=== PATIENT | male | born 1945 | race Caucasian/White ===

== ENCOUNTER 2019-12-27 | Outpatient (REF) | payer OTHER, SELFPAY ==
[2019-12-28 11:02] LABS: SCAN SMEAR FLAG 1
[2019-12-28 11:04] LABS: Basophils Percent Auto 0.9 % (0-2); Eosinophils Absolute Auto 0.2 X10*3/uL (0.0-0.4); Eosinophils Percent Auto 4.3 % (0-4); Hematocrit 34.5 % (42-52); Hemoglobin 10.6 g/dl (14.0-18.0); Imm Gran Abs Auto 0.03 X10*3/uL (0.00-0.03); Imm Gran Pct Auto 0.7 % (0.0-0.4); Lymphocytes Absolute Auto 1.4 X10*3/uL (1.2-4.9); Lymphocytes Percent Auto 31.2 % (20-40); Mean Corpuscular HGB Conc 30.7 g/dl (31.0-36.0); Mean Corpuscular Hemoglobin 26.1 pg (27.0-33.0); Monocytes Absolute Auto 0.5 X10*3/uL (0.1-1.2); Monocytes Percent Auto 11.4 % (2-11); Neutrophils Absolute Auto 2.3 X10*3/uL (2.0-8.3); Neutrophils Percent Auto 51.5 % (45-73); Platelet Count 119 X10*3/uL (160-400); Red Blood Count 4.06 X10*6/uL (4.60-5.80); White Blood Count 4.5 X10*3/uL (4.8-10.8)
[2019-12-28 11:15] LABS: PLT ABN DIST 1
[2019-12-28 11:16] LABS: MANUAL DIFF FLAG NO
== END 2019-12-27 00:01 | disposition home or self-care (01) ==
LOC: HO.HSH3W
PROVIDERS: Visit Provider Internal Medicine
DX: D64.9 Anemia, unspecified (principal)
CPT/HCPCS: 36415; 85025

== ENCOUNTER 2020-01-03 11:06 | Outpatient (REF) | payer OTHER, MEDICARE, SELFPAY | END 2020-01-03 11:07 | disposition home or self-care (01) | LOC: HO.HSH2W 11:06 | PROVIDERS: Visit Provider Internal Medicine Critical Care Medicine | DX: Z20.828 Contact with and (suspected) exposure to other viral communicable diseases (principal) | CPT/HCPCS: 87635 ==

== ENCOUNTER 2020-01-09 12:51 | Outpatient (REF) | payer OTHER, MEDICARE, SELFPAY ==
[2020-01-09 20:30] LABS: SARS COV2 PCR INHOUSE NEGATIVE (Negative)
== END 2020-01-09 12:52 | disposition home or self-care (01) ==
LOC: HO.HSH3E 12:51
PROVIDERS: PCP Internal Medicine Medical Oncology; Visit Provider Internal Medicine Medical Oncology
DX: Z20.828 Contact with and (suspected) exposure to other viral communicable diseases (principal); B34.9 Viral infection, unspecified
CPT/HCPCS: 87071; 87635

== ENCOUNTER 2020-01-10 06:23 | Outpatient (REF) | payer OTHER, MEDICARE, SELFPAY ==
[2020-01-10 09:36] LABS: MANUAL DIFF FLAG SCAN; Mean Corpuscular HGB Conc 31.7 g/dl (31.0-36.0); SCAN SMEAR FLAG 1
[2020-01-10 09:38] LABS: Basophils Absolute Auto 0.1 X10*3/uL (0.0-0.2); Basophils Percent Auto 0.6 % (0-2); Eosinophils Absolute Auto 0.2 X10*3/uL (0.0-0.4); Eosinophils Percent Auto 2.4 % (0-4); Hematocrit 34.7 % (42-52); Imm Gran Abs Auto 0.04 X10*3/uL (0.00-0.03); Imm Gran Pct Auto 0.5 % (0.0-0.4); Lymphocytes Absolute Auto 1.3 X10*3/uL (1.2-4.9); Lymphocytes Percent Auto 14.2 % (20-40); Mean Corpuscular Hemoglobin 27.9 pg (27.0-33.0); Mean Corpuscular Volume 88.1 fL (80-98); Monocytes Absolute Auto 1.5 X10*3/uL (0.1-1.2); Monocytes Percent Auto 16.8 % (2-11); Neutrophils Absolute Auto 5.8 X10*3/uL (2.0-8.3); Neutrophils Percent Auto 65.5 % (45-73); Red Blood Count 3.94 X10*6/uL (4.60-5.80); Red Cell Distribution Width 23.9 % (11.0-16.0); White Blood Count 8.9 X10*3/uL (4.8-10.8)
[2020-01-10 09:42] LABS: PLT ABN DIST 1; Platelet Count 95 X10*3/uL (160-400)
[2020-01-10 10:16] LABS: SLIDE REVIEW VERIFIED
[2020-01-10 14:37] LABS: SARS COV2 PCR INHOUSE NEGATIVE (Negative)
== END 2020-01-10 06:24 | disposition home or self-care (01) ==
LOC: HO.HSH3W 06:23
PROVIDERS: Visit Provider Internal Medicine Medical Oncology
DX: Z20.828 Contact with and (suspected) exposure to other viral communicable diseases (principal); J98.8 Other specified respiratory disorders
CPT/HCPCS: 36415; 85025; 87635

== ENCOUNTER 2020-01-12 06:34 | Outpatient (REF) | payer OTHER, SELFPAY ==
[2020-01-12 08:59] LABS: MANUAL DIFF FLAG SCAN; SCAN SMEAR FLAG 1
[2020-01-12 09:00] LABS: Basophils Percent Auto 0.7 % (0-2); Eosinophils Absolute Auto 0.2 X10*3/uL (0.0-0.4); Eosinophils Percent Auto 3.4 % (0-4); Hematocrit 34.5 % (42-52); Hemoglobin 11.2 g/dl (14.0-18.0); Imm Gran Abs Auto 0.02 X10*3/uL (0.00-0.03); Imm Gran Pct Auto 0.3 % (0.0-0.4); Lymphocytes Absolute Auto 1.3 X10*3/uL (1.2-4.9); Lymphocytes Percent Auto 21.3 % (20-40); Mean Corpuscular HGB Conc 32.5 g/dl (31.0-36.0); Mean Corpuscular Hemoglobin 28.2 pg (27.0-33.0); Mean Corpuscular Volume 86.9 fL (80-98); Monocytes Absolute Auto 0.9 X10*3/uL (0.1-1.2); Monocytes Percent Auto 15.7 % (2-11); Neutrophils Absolute Auto 3.5 X10*3/uL (2.0-8.3); Neutrophils Percent Auto 58.6 % (45-73); Platelet Count 106 X10*3/uL (160-400); Red Blood Count 3.97 X10*6/uL (4.60-5.80); Red Cell Distribution Width 22.9 % (11.0-16.0)
[2020-01-12 09:05] LABS: PLT ABN DIST 1
[2020-01-12 10:16] LABS: Vitamin D 25-OH Total 8.9 ng/mL (>30)
== END 2020-01-12 06:35 | disposition home or self-care (01) ==
LOC: HO.HSH1N 06:34
PROVIDERS: Visit Provider Nurse Practitioner
DX: D64.9 Anemia, unspecified (principal)
CPT/HCPCS: 36415; 82306; 85025

== ENCOUNTER 2020-02-08 07:25 | Outpatient (REF) | payer OTHER, SELFPAY ==
[2020-02-08 08:42] LABS: MANUAL DIFF FLAG NO
[2020-02-08 08:51] LABS: Basophils Percent Auto 0.8 % (0-2); Eosinophils Absolute Auto 0.3 X10*3/uL (0.0-0.4); Eosinophils Percent Auto 5.3 % (0-4); Hematocrit 33.6 % (42-52); Hemoglobin 11.2 g/dl (14.0-18.0); Imm Gran Abs Auto 0.02 X10*3/uL (0.00-0.03); Imm Gran Pct Auto 0.4 % (0.0-0.4); Lymphocytes Absolute Auto 1.5 X10*3/uL (1.2-4.9); Lymphocytes Percent Auto 32.3 % (20-40); Mean Corpuscular HGB Conc 33.3 g/dl (31.0-36.0); Mean Corpuscular Hemoglobin 30.1 pg (27.0-33.0); Mean Corpuscular Volume 90.3 fL (80-98); Mean Platelet Volume 12.3 fL (9.4-12.4); Monocytes Absolute Auto 0.7 X10*3/uL (0.1-1.2); Monocytes Percent Auto 13.7 % (2-11); Neutrophils Absolute Auto 2.3 X10*3/uL (2.0-8.3); Neutrophils Percent Auto 47.5 % (45-73); Red Blood Count 3.72 X10*6/uL (4.60-5.80); Red Cell Distribution Width 18.1 % (11.0-16.0); White Blood Count 4.7 X10*3/uL (4.8-10.8)
[2020-02-08 08:53] LABS: Platelet Count 97 X10*3/uL (160-400)
== END 2020-02-08 07:26 | disposition home or self-care (01) ==
LOC: HO.HSH3W 07:25
PROVIDERS: Visit Provider Nurse Practitioner
DX: D64.9 Anemia, unspecified (principal)
CPT/HCPCS: 36415; 85025

== ENCOUNTER 2020-03-27 07:29 | Outpatient (REF) | payer OTHER, SELFPAY ==
[2020-03-27 09:25] LABS: MANUAL DIFF FLAG NO
[2020-03-27 09:31] LABS: Basophils Percent Auto 0.8 % (0-2); Eosinophils Absolute Auto 0.1 X10*3/uL (0.0-0.4); Eosinophils Percent Auto 2.3 % (0-4); Hematocrit 36.2 % (42-52); Hemoglobin 12.4 g/dl (14.0-18.0); Imm Gran Abs Auto 0.02 X10*3/uL (0.00-0.03); Imm Gran Pct Auto 0.4 % (0.0-0.4); Lymphocytes Absolute Auto 1.7 X10*3/uL (1.2-4.9); Lymphocytes Percent Auto 31.8 % (20-40); Mean Corpuscular HGB Conc 34.3 g/dl (31.0-36.0); Mean Corpuscular Hemoglobin 32.9 pg (27.0-33.0); Mean Platelet Volume 12.3 fL (9.4-12.4); Monocytes Absolute Auto 0.8 X10*3/uL (0.1-1.2); Monocytes Percent Auto 15.3 % (2-11); Neutrophils Absolute Auto 2.6 X10*3/uL (2.0-8.3); Neutrophils Percent Auto 49.4 % (45-73); Platelet Count 104 X10*3/uL (160-400); Red Blood Count 3.77 X10*6/uL (4.60-5.80); Red Cell Distribution Width 13.7 % (11.0-16.0); White Blood Count 5.3 X10*3/uL (4.8-10.8)
[2020-03-27 09:42] LABS: Estimated Average Glucose 160 mg/dL; Hemoglobin A1c % 7.2 %
[2020-03-27 09:56] LABS: Alanine Aminotransferase 10 U/L (0-40); Albumin Level 3.6 g/dL (3.5-5.0); Alkaline Phosphatase 47 U/L (39-117); Anion Gap 13 (12-20); Aspartate Amino Transferase 13 U/L (5-37); Bilirubin Total 0.9 mg/dL (0.0-1.0); Blood Urea Nitrogen 15 mg/dL (9-16); Calcium 8.6 mg/dL (8.4-10.2); Carbon Dioxide 26 mmol/L (22-29); Chloride 102 mmol/L (96-108); Estimated Glomerular Filt Rate > 60; Glucose Random 94 mg/dL (60-115); Potassium 3.7 mmol/l (3.3-5.1); Sodium 137 mmol/L (135-145); Total Protein 6.1 g/dL (6.5-8.0)
[2020-03-27 14:15] LABS: Vitamin D 25-OH Total 24.9 ng/mL (>30)
== END 2020-03-27 07:30 | disposition home or self-care (01) ==
LOC: HO.HSH3W 07:29
PROVIDERS: Visit Provider Nurse Practitioner
DX: E55.9 Vitamin D deficiency, unspecified (principal); E11.9 Type 2 diabetes mellitus without complications; D64.9 Anemia, unspecified
CPT/HCPCS: 36415; 80053; 82306; 83036; 85025

== ENCOUNTER 2020-06-26 05:30 | Outpatient (REF) | payer OTHER, SELFPAY ==
[2020-06-26 10:00] LABS: Estimated Average Glucose 171 mg/dL; Hemoglobin A1c % 7.6 %
== END 2020-06-26 05:31 | disposition home or self-care (01) ==
LOC: HO.HSH3W 05:30
PROVIDERS: Visit Provider Nurse Practitioner
DX: E11.9 Type 2 diabetes mellitus without complications (principal)
CPT/HCPCS: 36415; 83036

== ENCOUNTER 2020-10-20 06:21 | Outpatient (REF) | payer OTHER, SELFPAY ==
[2020-10-20 07:49] LABS: MANUAL DIFF FLAG NO
[2020-10-20 07:54] LABS: Basophils Percent Auto 0.7 % (0-2); Eosinophils Absolute Auto 0.2 X10*3/uL (0.0-0.4); Eosinophils Percent Auto 2.5 % (0-4); Hematocrit 33.5 % (42-52); Hemoglobin 11.1 g/dl (14.0-18.0); Imm Gran Abs Auto 0.03 X10*3/uL (0.00-0.03); Imm Gran Pct Auto 0.5 % (0.0-0.4); Lymphocytes Absolute Auto 1.5 X10*3/uL (1.2-4.9); Mean Corpuscular HGB Conc 33.1 g/dl (31.0-36.0); Mean Corpuscular Hemoglobin 30.9 pg (27.0-33.0); Mean Corpuscular Volume 93.3 fL (80-98); Monocytes Absolute Auto 0.7 X10*3/uL (0.1-1.2); Monocytes Percent Auto 12.5 % (2-11); Neutrophils Absolute Auto 3.4 X10*3/uL (2.0-8.3); Neutrophils Percent Auto 57.8 % (45-73); Platelet Count 118 X10*3/uL (160-400); Red Blood Count 3.59 X10*6/uL (4.60-5.80); Red Cell Distribution Width 12.5 % (11.0-16.0); White Blood Count 5.9 X10*3/uL (4.8-10.8)
[2020-10-20 07:54] LABS: Glucose Urine UA NEG (NEG); Leukocyte Esterase Urine NEG (NEG); Nitrite Urine NEG (NEG); Urine Blood NEG (NEG); Urine Ketones 5 MG/DL (NEG); Urine Protein NEG (NEG-TRACE)
[2020-10-20 07:55] LABS: Appearance Urine CLEAR; Color Urine YELLOW
[2020-10-20 08:07] LABS: Alanine Aminotransferase 8 U/L (0-40); Albumin Level 3.7 g/dL (3.5-5.0); Alkaline Phosphatase 45 U/L (39-117); Anion Gap 12 (12-20); Aspartate Amino Transferase 12 U/L (5-37); Bilirubin Total 0.6 mg/dL (0.0-1.0); Blood Urea Nitrogen 15 mg/dL (9-16); Calcium 9.4 mg/dL (8.4-10.2); Carbon Dioxide 28 mmol/L (22-29); Chloride 100 mmol/L (96-108); Estimated Glomerular Filt Rate > 60; Glucose Fasting 144 mg/dL (60-99); Potassium 3.9 mmol/L (3.3-5.1); Sodium 136 mmol/L (135-145); Total Protein 6.1 g/dL (6.5-8.0)
[2020-10-20 08:11] LABS: Estimated Average Glucose 137 mg/dL; Hemoglobin A1c % 6.4 %
[2020-10-20 08:49] LABS: Microalbum/Creatinine Ratio Ur 4.3 ug/mg cr
== END 2020-10-20 06:22 | disposition home or self-care (01) ==
LOC: HO.HSH3W 06:21
PROVIDERS: Visit Provider Nurse Practitioner
DX: E11.9 Type 2 diabetes mellitus without complications (principal); K72.90 Hepatic failure, unspecified without coma
CPT/HCPCS: 36415; 80053; 81003; 82043; 83036; 85025

== ENCOUNTER 2021-02-01 11:40 | Outpatient (REF) | payer OTHER, SELFPAY ==
[2021-02-01 07:49] LABS: Imm Gran Abs Auto 0.02 X10*3/uL (0.00-0.03); Imm Gran Pct Auto 0.4 % (0.0-0.4); MANUAL DIFF FLAG SCAN; PLT CLUMP 1; SCAN SMEAR FLAG 1
[2021-02-01 07:51] LABS: Basophils Percent Auto 0.6 % (0-2); Eosinophils Absolute Auto 0.1 X10*3/uL (0.0-0.4); Eosinophils Percent Auto 2.8 % (0-4); Hematocrit 31.6 % (42.0-52.0); Lymphocytes Absolute Auto 0.9 X10*3/uL (1.2-4.9); Lymphocytes Percent Auto 19.6 % (20-40); Mean Corpuscular HGB Conc 31.6 g/dl (31.0-36.0); Mean Corpuscular Hemoglobin 28.8 pg (27.0-33.0); Mean Corpuscular Volume 91.1 fL (80.0-98.0); Mean Platelet Volume 11.8 fL (9.4-12.4); Monocytes Absolute Auto 0.6 X10*3/uL (0.1-1.2); Monocytes Percent Auto 13.4 % (2-11); Neutrophils Percent Auto 63.2 % (45-73); Platelet Count 117 X10*3/uL (160-400); Red Blood Count 3.47 X10*6/uL (4.60-5.80); Red Cell Distribution Width 12.9 % (11.0-16.0); White Blood Count 4.7 X10*3/uL (4.8-10.8)
[2021-02-01 07:52] LABS: SLIDE REVIEW VERIFIED
[2021-02-01 07:56] LABS: Alanine Aminotransferase 9 U/L (0-40); Albumin Level 3.6 g/dL (3.5-5.0); Alkaline Phosphatase 46 U/L (39-117); Anion Gap 10 (12-20); Aspartate Amino Transferase 11 U/L (5-37); Bilirubin Total 0.6 mg/dL (0.0-1.0); Blood Urea Nitrogen 9 mg/dL (9-16); Calcium 8.6 mg/dL (8.4-10.2); Carbon Dioxide 26 mmol/L (22-29); Chloride 102 mmol/L (96-108); Estimated Glomerular Filt Rate > 60; Glucose Fasting 225 mg/dL (60-99); Potassium 4.2 mmol/L (3.3-5.1); Sodium 134 mmol/L (135-145); Total Protein 6.2 g/dL (6.5-8.0)
[2021-02-01 08:51] LABS: Estimated Average Glucose 169 mg/dL; Hemoglobin A1C 150.3293 umol/L; Hemoglobin A1c % 7.5 %
== END 2021-02-01 11:41 | disposition home or self-care (01) ==
LOC: HO.HSH3W 11:40
PROVIDERS: Visit Provider Nurse Practitioner
DX: E11.9 Type 2 diabetes mellitus without complications (principal); D64.9 Anemia, unspecified
CPT/HCPCS: 36415; 80053; 83036; 85025

== ENCOUNTER 2021-07-12 05:30 | Outpatient (REF) | payer OTHER, SELFPAY ==
[2021-07-12 08:29] LABS: MANUAL DIFF FLAG NO
[2021-07-12 08:30] LABS: Basophils Percent Auto 0.4 % (0-2); Eosinophils Absolute Auto 0.1 X10*3/uL (0.0-0.4); Eosinophils Percent Auto 2.8 % (0-4); Hemoglobin 7.9 g/dl (14.0-18.0); Imm Gran Abs Auto 0.01 X10*3/uL (0.00-0.03); Imm Gran Pct Auto 0.2 % (0.0-0.4); Lymphocytes Absolute Auto 1.2 X10*3/uL (1.2-4.9); Lymphocytes Percent Auto 23.7 % (20-40); Mean Corpuscular HGB Conc 29.3 g/dl (31.0-36.0); Mean Corpuscular Hemoglobin 23.6 pg (27.0-33.0); Mean Corpuscular Volume 80.6 fL (80.0-98.0); Mean Platelet Volume 11.3 fL (9.4-12.4); Monocytes Absolute Auto 0.7 X10*3/uL (0.1-1.2); Monocytes Percent Auto 13.8 % (2-11); Neutrophils Percent Auto 59.1 % (45-73); Platelet Count 133 X10*3/uL (160-400); Red Blood Count 3.35 X10*6/uL (4.60-5.80); Red Cell Distribution Width 16.7 % (11.0-16.0); White Blood Count 5.1 X10*3/uL (4.8-10.8)
[2021-07-12 08:56] LABS: Estimated Average Glucose 148 mg/dL; Hemoglobin A1c % 6.8 %
[2021-07-12 09:25] LABS: Alanine Aminotransferase 8 U/L (0-40); Albumin Level 3.4 g/dL (3.5-5.0); Alkaline Phosphatase 40 U/L (39-117); Anion Gap 9 (12-20); Aspartate Amino Transferase 10 U/L (5-37); Bilirubin Total 0.6 mg/dL (0.0-1.0); Blood Urea Nitrogen 13 mg/dL (9-16); Carbon Dioxide 29 mmol/L (22-29); Chloride 101 mmol/L (96-108); Estimated Glomerular Filt Rate > 60; Glucose Fasting 198 mg/dL (60-99); Potassium 4.2 mmol/L (3.3-5.1); Sodium 135 mmol/L (135-145); Total Protein 5.7 g/dL (6.5-8.0)
== END 2021-07-12 05:31 | disposition home or self-care (01) ==
LOC: HO.HSH3W 05:30
PROVIDERS: Visit Provider Nurse Practitioner
DX: D64.9 Anemia, unspecified (principal); E11.9 Type 2 diabetes mellitus without complications
CPT/HCPCS: 36415; 80053; 83036; 85025

== ENCOUNTER 2021-07-16 14:22 | Outpatient (REF) | payer OTHER, SELFPAY ==
[2021-07-17 07:38] LABS: FIT Int Ctl YES; FIT2 NEGATIVE (NEGATIVE)
== END 2021-07-16 14:23 | disposition home or self-care (01) ==
LOC: HO.HSH3W 14:22
PROVIDERS: Visit Provider Nurse Practitioner
DX: D64.9 Anemia, unspecified (principal)
CPT/HCPCS: 82274

== ENCOUNTER 2021-07-23 05:43 | Outpatient (REF) | payer OTHER, SELFPAY ==
[2021-07-23 06:59] LABS: MANUAL DIFF FLAG NO
[2021-07-23 07:11] LABS: Basophils Percent Auto 0.6 % (0-2); Eosinophils Absolute Auto 0.1 X10*3/uL (0.0-0.4); Eosinophils Percent Auto 1.5 % (0-4); Hematocrit 30.9 % (42.0-52.0); Hemoglobin 9.1 g/dl (14.0-18.0); Imm Gran Abs Auto 0.02 X10*3/uL (0.00-0.03); Imm Gran Pct Auto 0.4 % (0.0-0.4); Lymphocytes Absolute Auto 1.1 X10*3/uL (1.2-4.9); Lymphocytes Percent Auto 20.3 % (20-40); Mean Corpuscular HGB Conc 29.4 g/dl (31.0-36.0); Mean Corpuscular Hemoglobin 23.8 pg (27.0-33.0); Mean Corpuscular Volume 80.9 fL (80.0-98.0); Mean Platelet Volume 12.1 fL (9.4-12.4); Monocytes Absolute Auto 0.7 X10*3/uL (0.1-1.2); Monocytes Percent Auto 12.8 % (2-11); Neutrophils Absolute Auto 3.5 x10*3/uL (2.0-8.3); Neutrophils Percent Auto 64.4 % (45-73); Platelet Count 151 X10*3/uL (160-400); Red Blood Count 3.82 X10*6/uL (4.60-5.80); White Blood Count 5.4 X10*3/uL (4.8-10.8)
[2021-07-23 07:28] LABS: Iron 21 mcg/dL (45-160); Percent Iron Saturation 4 % (15-50); Total Iron Binding Capacity 472 mcg/dL (228-428); Unsaturated Iron Binding 451 ug/dL
[2021-07-23 07:49] LABS: Ferritin 15 ng/mL (20-250)
[2021-07-23 10:52] LABS: Folate 11.6 ng/mL (> or = 4.0); Vitamin B12 154 pg/mL (200-900)
== END 2021-07-23 05:44 | disposition home or self-care (01) ==
LOC: HO.HSH3W 05:43
PROVIDERS: Visit Provider Nurse Practitioner Acute Care
DX: D64.9 Anemia, unspecified (principal)
CPT/HCPCS: 36415; 82607; 82728; 82746; 83540; 85025

== ENCOUNTER 2021-07-24 06:38 | Outpatient (REF) | payer OTHER, SELFPAY ==
[2021-07-24 07:37] LABS: MANUAL DIFF FLAG NO
[2021-07-24 07:43] LABS: Basophils Percent Auto 0.7 % (0-2); Eosinophils Absolute Auto 0.1 X10*3/uL (0.0-0.4); Eosinophils Percent Auto 2.7 % (0-4); Hemoglobin 9.5 g/dl (14.0-18.0); Imm Gran Abs Auto 0.02 X10*3/uL (0.00-0.03); Imm Gran Pct Auto 0.4 % (0.0-0.4); Immature Retic Fraction 21.3 % (2.3-13.4); Lymphocytes Absolute Auto 1.2 X10*3/uL (1.2-4.9); Lymphocytes Percent Auto 25.9 % (20-40); Mean Corpuscular HGB Conc 29.7 g/dl (31.0-36.0); Mean Corpuscular Hemoglobin 24.2 pg (27.0-33.0); Mean Corpuscular Volume 81.4 fL (80.0-98.0); Mean Platelet Volume 11.8 fL (9.4-12.4); Monocytes Absolute Auto 0.7 X10*3/uL (0.1-1.2); Monocytes Percent Auto 14.6 % (2-11); Neutrophils Absolute Auto 2.5 x10*3/uL (2.0-8.3); Neutrophils Percent Auto 55.7 % (45-73); Platelet Count 149 X10*3/uL (160-400); Red Blood Count 3.93 X10*6/uL (4.60-5.80); Red Cell Distribution Width 17.1 % (11.0-16.0); Retic HGB Equivalent 26.7 pg (30.0-35.0); Reticulocyte Percent 2.5 % (0.5-1.8); White Blood Count 4.5 X10*3/uL (4.8-10.8)
[2021-07-24 08:26] LABS: Vitamin B12 < 146 pg/mL (200-900)
== END 2021-07-24 06:39 | disposition home or self-care (01) ==
LOC: HO.HSH3W 06:38
PROVIDERS: Visit Provider Nurse Practitioner
DX: D64.9 Anemia, unspecified (principal)
CPT/HCPCS: 36415; 82607; 85025; 85045

== ENCOUNTER 2021-07-25 07:50 | Outpatient (REF) | payer OTHER, MEDICARE, SELFPAY | END 2021-07-25 07:51 | disposition home or self-care (01) | LOC: HO.HSH3W 07:50 | PROVIDERS: Visit Provider Nurse Practitioner | DX: Z13.89 Encounter for screening for other disorder (principal) ==

== ENCOUNTER 2021-08-24 05:42 | Outpatient (REF) | payer OTHER, SELFPAY ==
[2021-08-24 06:44] LABS: Alanine Aminotransferase 9 U/L (0-40); Albumin Level 3.4 g/dL (3.5-5.0); Alkaline Phosphatase 46 U/L (39-117); Aspartate Amino Transferase 12 U/L (5-37); Bilirubin Direct 0.2 mg/dL (0.0-0.5); Bilirubin Total 0.6 mg/dL (0.0-1.0); Total Protein 5.8 g/dL (6.5-8.0)
[2021-08-24 06:45] LABS: Ammonia 34 umol/L (13-55)
== END 2021-08-24 05:43 | disposition home or self-care (01) ==
LOC: HO.HSH3W 05:42
PROVIDERS: Visit Provider Nurse Practitioner Acute Care
DX: K70.30 Alcoholic cirrhosis of liver without ascites (principal)
CPT/HCPCS: 36415; 80076; 82140

== ENCOUNTER 2021-08-27 05:40 | Outpatient (REF) | payer OTHER, SELFPAY ==
[2021-08-27 07:48] LABS: MANUAL DIFF FLAG NO
[2021-08-27 07:49] LABS: Basophils Percent Auto 0.6 % (0-2); Eosinophils Absolute Auto 0.1 X10*3/uL (0.0-0.4); Eosinophils Percent Auto 2.5 % (0-4); Hematocrit 31.1 % (42.0-52.0); Hemoglobin 9.4 g/dl (14.0-18.0); Imm Gran Abs Auto 0.02 X10*3/uL (0.00-0.03); Imm Gran Pct Auto 0.4 % (0.0-0.4); Immature Retic Fraction 22.9 % (2.3-13.4); Lymphocytes Absolute Auto 1.3 X10*3/uL (1.2-4.9); Lymphocytes Percent Auto 24.8 % (20-40); Mean Corpuscular HGB Conc 30.2 g/dl (31.0-36.0); Mean Corpuscular Hemoglobin 26.1 pg (27.0-33.0); Mean Corpuscular Volume 86.4 fL (80.0-98.0); Mean Platelet Volume 11.9 fL (9.4-12.4); Monocytes Absolute Auto 0.7 X10*3/uL (0.1-1.2); Neutrophils Absolute Auto 3.1 x10*3/uL (2.0-8.3); Neutrophils Percent Auto 58.7 % (45-73); Platelet Count 146 X10*3/uL (160-400); Red Cell Distribution Width 18.2 % (11.0-16.0); Retic HGB Equivalent 29.8 pg (30.0-35.0); Reticulocyte Percent 2.4 % (0.5-1.8); Reticulocytes Absolute 0.085 X10*6/uL (0.026-0.095); White Blood Count 5.3 X10*3/uL (4.8-10.8)
[2021-08-27 09:54] LABS: Vitamin B12 218 pg/mL (200-900)
== END 2021-08-27 05:41 | disposition home or self-care (01) ==
LOC: HO.HSH3W 05:40
PROVIDERS: Visit Provider Nurse Practitioner
DX: D64.9 Anemia, unspecified (principal)
CPT/HCPCS: 36415; 82607; 85025; 85045

== ENCOUNTER 2022-01-02 05:30 | Outpatient (REF) | payer OTHER, SELFPAY ==
[2022-01-02 06:38] LABS: INTERNATIONAL NORM RATIO 1.1 (0.9-1.1); Prothrombin Time 13.2 SEC (10.0-13.1)
[2022-01-02 07:03] LABS: Albumin Level 3.4 g/dL (3.5-5.0); Bilirubin Direct 0.2 mg/dL (0.0-0.5); Blood Urea Nitrogen 13 mg/dL (9-16); Estimated Glomerular Filt Rate > 60
== END 2022-01-02 05:31 | disposition home or self-care (01) ==
LOC: HO.HSH3W 05:30
PROVIDERS: Visit Provider Nurse Practitioner
DX: N18.9 Chronic kidney disease, unspecified (principal)
CPT/HCPCS: 36415; 82040; 82248; 82565; 84520; 85610

== ENCOUNTER 2022-01-18 09:42 | Outpatient (REF) | payer OTHER, SELFPAY ==
[2022-01-18 07:50] LABS: MANUAL DIFF FLAG NO
[2022-01-18 07:53] LABS: Basophils Percent Auto 0.4 % (0-2); Eosinophils Absolute Auto 0.1 X10*3/uL (0.0-0.4); Eosinophils Percent Auto 1.8 % (0-4); Hematocrit 31.2 % (42.0-52.0); Hemoglobin 10.3 g/dl (14.0-18.0); Imm Gran Abs Auto 0.03 X10*3/uL (0.00-0.03); Imm Gran Pct Auto 0.4 % (0.0-0.4); Lymphocytes Absolute Auto 1.1 X10*3/uL (1.2-4.9); Lymphocytes Percent Auto 16.9 % (20-40); Mean Corpuscular Hemoglobin 29.9 pg (27.0-33.0); Mean Corpuscular Volume 90.4 fL (80.0-98.0); Mean Platelet Volume 11.7 fL (9.4-12.4); Monocytes Absolute Auto 0.8 X10*3/uL (0.1-1.2); Neutrophils Absolute Auto 4.6 x10*3/uL (2.0-8.3); Neutrophils Percent Auto 68.5 % (45-73); Platelet Count 183 X10*3/uL (160-400); Red Blood Count 3.45 X10*6/uL (4.60-5.80); Red Cell Distribution Width 12.7 % (11.0-16.0); White Blood Count 6.7 X10*3/uL (4.8-10.8)
[2022-01-18 08:00] LABS: Estimated Average Glucose 151 mg/dL; Hemoglobin A1c % 6.9 %
[2022-01-18 08:15] LABS: Anion Gap 17 (12-20); Blood Urea Nitrogen 13 mg/dL (9-16); Carbon Dioxide 27 mmol/L (22-29); Chloride 97 mmol/L (96-108); Estimated Glomerular Filt Rate > 60; Glucose Fasting 131 mg/dL (60-99); Potassium 4.5 mmol/L (3.3-5.1); Sodium 136 mmol/L (135-145)
[2022-01-18 08:16] LABS: Creatinine Urine 209.22 mg/dL; Microalbum/Creatinine Ratio Ur 3.3 ug/mg cr
== END 2022-01-18 09:43 | disposition home or self-care (01) ==
LOC: HO.HSH3W 09:42
PROVIDERS: Visit Provider Internal Medicine Interventional Cardiology
DX: E11.22 Type 2 diabetes mellitus with diabetic chronic kidney disease (principal); N18.9 Chronic kidney disease, unspecified; D64.9 Anemia, unspecified
CPT/HCPCS: 36415; 80048; 82043; 83036; 85025

== ENCOUNTER 2022-04-18 02:54 | Inpatient (IN) | payer OTHER, SELFPAY ==
[2022-04-18] VITALS (18 sets, daily range): BP systolic 92–127; BP diastolic 52–79; PULSE 82–103; RESP 16–23; TEMP 36.1–37.2; O2SAT 96–100; BMI 30.9
--- NOTE | 2022-04-18 | ECG_ITS ---
Test Reason : CHEST PAIN Blood Pressure : / mmHG Vent. Rate : 095 BPM Atrial Rate : 095 BPM P-R Int : 176 ms QRS Dur : 090 ms QT Int : 356 ms P-R-T Axes : 032 041 230 degrees QTc Int : 447 ms Normal sinus rhythm Marked ST abnormality, possible inferior subendocardial injury Abnormal ECG When compared with ECG of 05-JUN-2007 12:42, ST now depressed in Inferior leads ST now depressed in Lateral leads T wave inversion now evident in Anterolateral leads Referred By: Generic ED Physician Electronically Signed By:ISRAEL SUAZO
--- NOTE | ~2022-04-18 | XR_ITS ---
EXAMINATION: XR CHEST CLINICAL INFORMATION: Chest pain COMPARISON: None TECHNIQUE: Frontal view of the chest was obtained. FINDINGS: Lung volumes are symmetric. There are mild, ill-defined streaky opacities towards the lung bases. No evidence of pneumothorax or significant pleural effusion. Cardiac size is within normal limits. Calcification is present at the aortic arch. No acute osseous findings are seen. XR/XR chest 1V IMPRESSION: Mild, ill-defined streaky bibasilar opacities, which could reflect atelectasis or potentially developing consolidation in the proper clinical setting.
--- NOTE | 2022-04-18 03:29 | ED.CHESTPAIN ---
HPI - Chest Pain General Chief Complaint: Chest Pain Stated Complaint: Chest pain Time Seen by Provider: 04/18/22 03:29 Source: patient Mode of arrival: EMS History of Present Illness HPI narrative: Patient with history of severe aortic stenosis 0.45 cm2, history of diabetes hypertension, alcoholic cirrhosis, CHF, chronic venous insufficiency , hyperlipidemia, dementia on aspirin and insulin brought by EMS as patient reported to the nursing staff son by 10 left-sided chest pain on arrival patient chest pain decreased to 2 x 10 patient was given 324 mg of aspirin after arrival patient denies any chest pain very forgetful no shortness of breath no cough Related Data Home Medications Medication Instructions Recorded Confirmed acetaminophen See Rx Instructions .Route .COMPLEX 04/18/22 04/18/22 Allergies Allergy/AdvReac Type Severity Reaction Status Date / Time No Known Allergies Allergy Mild NONE Unverified 12/09/19 17:36 Review of Systems Review of Systems: Yes all other systems are reviewed and are negative PMFSH Past Medical History Medical History Anemia, unspecified CKD stage 3 due to type 2 diabetes mellitus Diabetes GERD (gastroesophageal reflux disease) Hypertension Neuropathy Surgical History History of bilateral knee replacement Social History Social History Alcohol intake: current Alcohol intake frequency: a few times a week Alcohol type: hard liquor Smoked in Last 30 Days: No Use of substances other than those prescribed or required for medical reasons: No Advance Directives: No Advance Directives Date on File: 01/11/20 Physical Exam Vital Signs: Vital Signs: Last Vital Signs Temp 97.9 F 04/18/22 06:11 Pulse 101 H 04/18/22 06:13 Resp 16 04/18/22 06:11 BP 103/62 04/18/22 06:13 Pulse Ox 97 04/18/22 06:11 O2 Del Method 04/18/22 06:11 O2 Flow Rate 2 04/18/22 06:11 BMI result Body Mass Index 30.9 Appearance: Alert. Oriented X1-2. No acute distress. forgetful Eyes: PERRLA, No Nystagmus pale ENT: Pharynx normal. Oral Mucosa moist Neck: Normal inspection. Neck supple. CVS: Normal heart rate and rhythm. Pulses normal. systolic ejection murmur 3/6 at base Respiratory: No respiratory distress. Equal air entry bilateral, no wheezing/rales/rhonchi Abdomen: Soft and nontender. Bowel sounds are present, no mass palpable, no CVA tenderness rectal; dark stool guaiac positive Skin: Skin warm and dry. pallor. Normal skin turgor. Extremities: No lower extremity edema. No calf tenderness Neuro: Oriented X 1-2. No motor deficit. No sensory deficit.No cerebellar signs , cranial nerves II-XII intact Medications Administered Discontinued Medications Generic Name Dose Route Start Last Admin Trade Name Freq PRN Reason Stop Dose Admin Furosemide 40 mg 04/18/22 05:52 04/18/22 05:55 Furosemide 40 Mg/4 Ml Vial IVPUSH 04/18/22 05:53 40 mg ONCE ONE Administration Protocol Lorazepam 0.5 mg 04/18/22 05:02 04/18/22 05:12 Lorazepam 0.5 Mg Tablet PO 04/18/22 05:03 0.5 mg ONCE ONE Administration Pantoprazole Sodium 40 mg 04/18/22 04:35 04/18/22 04:41 Pantoprazole Sodium 40 Mg/10 Ml Vial IVPUSH 04/18/22 04:36 40 mg ONCE ONE Administration Medical Decision Making Medical Decision Making [facility] Narrative: patient with severe aortic stenosis came with chest pain with with ST depression in lateral leads no active chest pain at this time will admit patient rule out ACS also noticed patient is guaiac positive with dark stool hemoglobin 6.5 could be demand ischemia Consult Healthcare Provider Management of the patient was discussed with: Hospitalist Lab Data [facility] Lab Attestation statement: I reviewed the patient's lab results. 04/18/22 03:47 04/18/22 03:47 Labs: Lab Results 04/18/22 04/18/22 04/18/22 Range/Units 03:46 03:47 03:47 WBC 4.5 L (4.8-10.8) X10*3/uL RBC 2.39 L D (4.60-5.80) X10*6/uL Hgb 6.5 L* D (14.0-18.0) g/dl Hct 22.3 L D (42.0-52.0) % MCV 93.3 (80.0-98.0) fL MCH 27.2 (27.0-33.0) pg MCHC 29.1 L (31.0-36.0) g/dl RDW 16.6 H (11.0-16.0) % Plt Count 131 L D (160-400) X10*3/uL MPV 10.5 (9.4-12.4) fL Immature Gran % (Auto) 0.7 H (0.0-0.4) % Neut % (Auto) 70.4 (45-73) % Lymph % (Auto) 15.7 L (20-40) % [place] % (Auto) 10.7 (2-11) % Eos % (Auto) 1.8 (0-4) % Baso % (Auto) 0.7 (0-2) % Lymph # (Auto) 0.7 L (1.2-4.9) X10*3/uL [place] # (Auto) 0.5 (0.1-1.2) X10*3/uL Eos # (Auto) 0.1 (0.0-0.4) X10*3/uL Baso # (Auto) 0.0 (0.0-0.2) X10*3/uL Abs Immat Gran (auto) 0.03 (0.00-0.03) X10*3/uL Absolute Neuts (auto) 3.2 (2.0-8.3) x10*3/uL Absolute Nucleated RBC 0.000 (0.0-0.012) X10*3/uL Nucleated RBC % (auto) 0.0 (0.0-0.2) /100WBC PT 12.5 (10.0-13.1) SEC INR 1.1 (0.9-1.1) Sodium (135-145) mmol/L Potassium (3.3-5.1) mmol/L Chloride (96-108) mmol/L Carbon Dioxide (22-29) mmol/L Anion Gap (12-20) BUN (9-16) mg/dL Creatinine (0.5-1.4) mg/dL Estim Creat Clear Calc Estimated GFR Random Glucose (60-115) mg/dL Calcium (8.4-10.2) mg/dL Total Bilirubin (0.0-1.0) mg/dL AST (5-37) U/L ALT (0-40) U/L Alkaline Phosphatase (39-117) U/L Troponin I High Sens (<3.5-35.0) ng/L B-Natriuretic Peptide 383 H (<100) pg/mL Total Protein (6.5-8.0) g/dL Albumin (3.5-5.0) g/dL Stool Occult Blood (NEGATIVE) Blood Type Antibody Screen Crossmatch 04/18/22 04/18/22 04/18/22 Range/Units 03:47 03:47 04:12 WBC (4.8-10.8) X10*3/uL RBC (4.60-5.80) X10*6/uL Hgb (14.0-18.0) g/dl Hct (42.0-52.0) % MCV (80.0-98.0) fL MCH (27.0-33.0) pg MCHC (31.0-36.0) g/dl RDW (11.0-16.0) % Plt Count (160-400) X10*3/uL MPV (9.4-12.4) fL Immature Gran % (Auto) (0.0-0.4) % Neut % (Auto) (45-73) % Lymph % (Auto) (20-40) % [place] % (Auto) (2-11) % Eos % (Auto) (0-4) % Baso % (Auto) (0-2) % Lymph # (Auto) (1.2-4.9) X10*3/uL [place] # (Auto) (0.1-1.2) X10*3/uL Eos # (Auto) (0.0-0.4) X10*3/uL Baso # (Auto) (0.0-0.2) X10*3/uL Abs Immat Gran (auto) (0.00-0.03) X10*3/uL Absolute Neuts (auto) (2.0-8.3) x10*3/uL Absolute Nucleated RBC (0.0-0.012) X10*3/uL Nucleated RBC % (auto) (0.0-0.2) /100WBC PT (10.0-13.1) SEC INR (0.9-1.1) Sodium 134 L (135-145) mmol/L Potassium 4.2 (3.3-5.1) mmol/L Chloride 103 (96-108) mmol/L Carbon Dioxide 23 (22-29) mmol/L Anion Gap 12 (12-20) BUN 13 (9-16) mg/dL Creatinine 1.02 (0.5-1.4) mg/dL Estim Creat Clear Calc 70.0 Estimated GFR > 60 Random Glucose 311 H (60-115) mg/dL Calcium 8.5 (8.4-10.2) mg/dL Total Bilirubin 0.5 (0.0-1.0) mg/dL AST 9 (5-37) U/L ALT < 6 (0-40) U/L Alkaline Phosphatase 47 (39-117) U/L Troponin I High Sens 47.1 H (<3.5-35.0) ng/L B-Natriuretic Peptide (<100) pg/mL Total Protein 5.6 L (6.5-8.0) g/dL Albumin 3.4 L (3.5-5.0) g/dL Stool Occult Blood (NEGATIVE) Blood Type A Positive Antibody Screen NEGATIVE Crossmatch See Detail 04/18/22 Range/Units 04:46 WBC (4.8-10.8) X10*3/uL RBC (4.60-5.80) X10*6/uL Hgb (14.0-18.0) g/dl Hct (42.0-52.0) % MCV (80.0-98.0) fL MCH (27.0-33.0) pg MCHC (31.0-36.0) g/dl RDW (11.0-16.0) % Plt Count (160-400) X10*3/uL MPV (9.4-12.4) fL Immature Gran % (Auto) (0.0-0.4) % Neut % (Auto) (45-73) % Lymph % (Auto) (20-40) % [place] % (Auto) (2-11) % Eos % (Auto) (0-4) % Baso % (Auto) (0-2) % Lymph # (Auto) (1.2-4.9) X10*3/uL [place] # (Auto) (0.1-1.2) X10*3/uL Eos # (Auto) (0.0-0.4) X10*3/uL Baso # (Auto) (0.0-0.2) X10*3/uL Abs Immat Gran (auto) (0.00-0.03) X10*3/uL Absolute Neuts (auto) (2.0-8.3) x10*3/uL Absolute Nucleated RBC (0.0-0.012) X10*3/uL Nucleated RBC % (auto) (0.0-0.2) /100WBC PT (10.0-13.1) SEC INR (0.9-1.1) Sodium (135-145) mmol/L Potassium (3.3-5.1) mmol/L Chloride (96-108) mmol/L Carbon Dioxide (22-29) mmol/L Anion Gap (12-20) BUN (9-16) mg/dL Creatinine (0.5-1.4) mg/dL Estim Creat Clear Calc Estimated GFR Random Glucose (60-115) mg/dL Calcium (8.4-10.2) mg/dL Total Bilirubin (0.0-1.0) mg/dL AST (5-37) U/L ALT (0-40) U/L Alkaline Phosphatase (39-117) U/L Troponin I High Sens (<3.5-35.0) ng/L B-Natriuretic Peptide (<100) pg/mL Total Protein (6.5-8.0) g/dL Albumin (3.5-5.0) g/dL Stool Occult Blood POSITIVE (NEGATIVE) Blood Type Antibody Screen Crossmatch Independent Interpretation I performed an independent interpretation of an: EKG Interpretation: Normal sinus rhythm heart rate [address] depression in inferolateral leads which is new as compared to 02/13/2022 Discharge Plan Discharge Clinical Impression: ACS (acute coronary syndrome), Severe anemia, GI (gastrointestinal bleed) Patient Disposition: Admitted As Inpatient
[2022-04-18 03:52] LABS: Basophils Percent Auto 0.7 % (0-2); Eosinophils Absolute Auto 0.1 X10*3/uL (0.0-0.4); Eosinophils Percent Auto 1.8 % (0-4); Hematocrit 22.3 % (42.0-52.0); Imm Gran Abs Auto 0.03 X10*3/uL (0.00-0.03); Imm Gran Pct Auto 0.7 % (0.0-0.4); Lymphocytes Absolute Auto 0.7 X10*3/uL (1.2-4.9); Lymphocytes Percent Auto 15.7 % (20-40); MANUAL DIFF FLAG NO; Mean Corpuscular HGB Conc 29.1 g/dl (31.0-36.0); Mean Corpuscular Hemoglobin 27.2 pg (27.0-33.0); Mean Corpuscular Volume 93.3 fL (80.0-98.0); Mean Platelet Volume 10.5 fL (9.4-12.4); Monocytes Absolute Auto 0.5 X10*3/uL (0.1-1.2); Monocytes Percent Auto 10.7 % (2-11); Neutrophils Absolute Auto 3.2 x10*3/uL (2.0-8.3); Neutrophils Percent Auto 70.4 % (45-73); Platelet Count 131 X10*3/uL (160-400); Red Blood Count 2.39 X10*6/uL (4.60-5.80); Red Cell Distribution Width 16.6 % (11.0-16.0); White Blood Count 4.5 X10*3/uL (4.8-10.8)
[2022-04-18 03:59] LABS: Hemoglobin 6.5 g/dl (14.0-18.0)
--- NOTE | 2022-04-18 04:06 | PC.NURSE ---
Dr. Grullon aware reports will see pt now.
[2022-04-18 04:13] LABS: Troponin-I High Sensitivity 47.1 ng/L (<3.5-35.0)
[2022-04-18 04:14] LABS: B Type Natriuretic Peptide 383 pg/mL (<100)
[2022-04-18 04:14] LABS: Alanine Aminotransferase < 6 U/L (0-40); Albumin Level 3.4 g/dL (3.5-5.0); Alkaline Phosphatase 47 U/L (39-117); Anion Gap 12 (12-20); Aspartate Amino Transferase 9 U/L (5-37); Bilirubin Total 0.5 mg/dL (0.0-1.0); Blood Urea Nitrogen 13 mg/dL (9-16); Calcium 8.5 mg/dL (8.4-10.2); Carbon Dioxide 23 mmol/L (22-29); Chloride 103 mmol/L (96-108); Estimated Glomerular Filt Rate > 60; Glucose Random 311 mg/dL (60-115); Potassium 4.2 mmol/L (3.3-5.1); Sodium 134 mmol/L (135-145); Total Protein 5.6 g/dL (6.5-8.0)
[2022-04-18 04:32] LABS: INTERNATIONAL NORM RATIO 1.1 (0.9-1.1); Prothrombin Time 12.5 SEC (10.0-13.1)
[2022-04-18] MEDS: Pantoprazole Sodium 40 MG/10 ML VIAL IVPUSH (04:41)
[2022-04-18 04:50] LABS: OBS Int Ctl Valid YES; OBS1 POSITIVE (NEGATIVE)
[2022-04-18] MEDS: LORazepam 0.5 MG TABLET PO (05:12)
--- NOTE | 2022-04-18 05:33 | PC.NURSE ---
before blood transfusion pt became hypotensive 98/52 and reported feeling faint. Pt placed on semi trendelenburg position as pt kept sitting up. Pt placed on two L via nasal cannula for comfort.
--- NOTE | 2022-04-18 05:39 | PC.NURSE ---
Pt LEE x 4 statng, I can't keep sitting like this can I get up. Pt reminded creative writer is monitoring blood pressure therefore reason of why pt was placed in semi trendelenburg position.
[2022-04-18] MEDS: Furosemide 40 MG/4 ML VIAL IVPUSH (05:55)
--- NOTE | 2022-04-18 05:56 | PC.NURSE ---
BNP 383 per Hospitalist pt to receive 40 mg IV lasix.
--- NOTE | 2022-04-18 05:57 | PC.NURSE ---
PT reported feeling sob to Dr. Irby.
--- NOTE | 2022-04-18 06:14 | PC.NURSE ---
Pt continues to report he is feeling anxious keeps stating, I got to move around. can I get up? why am I so anxious?. Pt reminded pt is receiving blood transfusion. RN called daughter Ginger at [phone] to update on plan for admission. Pt was able to speak to daughter. video surveillance technicianchucky Moise will obtain ordered blood work.
--- NOTE | 2022-04-18 06:23 | P.HPHOSP_ITS ---
History of Present Illness Date of Service: 04/18/22 Chief Complaint: Shortness of breath 77-year-old male with past medical history of CKD stage 3, type 2 diabetes, GERD, iron deficiency anemia, hypertension, liver cirrhosis, presents to the hospital with complaints of shortness of breath, orthopnea, PND. Patient denies having any cough, no fever chills, no chest pain, no palpitations, no abdominal pain, no nausea or vomiting, he reports no urinary symptoms and no lower extremity edema. Reports no melena or hematochezia. No hemoptysis or hematemesis. Patient is a resident of [facility] [place]. On arrival to the ED patient has a temperature of 99 degrees, respiratory rate of 20, heart rate of 95, satting 99% on room air Labs are significant for WBC count of 4.5, hemoglobin of 6.5 with a baseline osmani und 10.3 from December of 2021, hematocrit of 22.3, sodium of 134, troponin of 47.1, BNP of 383 with no previous for comparison, Stool occult blood positive Chest x-ray shows ill-defined streaky bibasilar opacities which reflect a to lactase is versus consolidation Patient being transfused 2 units of PRBC and will be admitted for further management Review of Systems Review of Systems: Yes all other systems are reviewed and are negative [facility] Medical History Anemia, unspecified CKD stage 3 due to type 2 diabetes mellitus Diabetes GERD (gastroesophageal reflux disease) Hypertension Neuropathy Surgical History History of bilateral knee replacement Social History Alcohol intake: current Alcohol intake frequency: a few times a week Alcohol type: hard liquor Smoked in Last 30 Days: No Use of substances other than those prescribed or required for medical reasons: No Advance Directives: No Advance Directives Date on File: 01/11/20 Meds Allergies Allergy/AdvReac Type Severity Reaction Status Date / Time No Known Allergies Allergy Mild NONE Unverified 12/09/19 17:36 Active Medications: Current Medications Acetaminophen (Acetaminophen 325 Mg Tablet) 650 mg PO Q6H PRN PRN Reason: Pain, Mild (Pain Scale 1-3) Docusate Sodium (Docusate Sodium 100 Mg Capsule) 100 mg PO DAILY PRN PRN Reason: Constipation Ondansetron HCl (Ondansetron Hcl 4 Mg/2 Ml Vial) 4 mg IVPUSH Q8H PRN PRN Reason: Nausea and Vomiting Sodium Chloride (0.9 % Sodium Chloride Flush 3 Ml Syringe) 3 ml IVFLUSH QSHIFT [facility] Home Medications Medication Instructions Recorded Confirmed Last Taken Type acetaminophen See Rx Instructions .Route .COMPLEX 04/18/22 04/18/22 Unknown History Physical Exam Vital Signs and Narrative: Vital Signs: Last Vital Signs Temp 97.9 F 04/18/22 06:11 Pulse 101 H 04/18/22 06:13 Resp 16 04/18/22 06:11 BP 103/62 04/18/22 06:13 Pulse Ox 97 04/18/22 06:11 O2 Del Method 04/18/22 06:11 O2 Flow Rate 2 04/18/22 06:11 BMI result Body Mass Index 30.9 Const: General: cooperative and no acute distress Orientation/consciousness: patient oriented x3 Eyes: General: appearance normal, both eyes and all related structures Pupils: Equal, round and reactive pupils present Resp: Other: Minimal crackles in the bases Effort & Inspection: normal respiratory effort Cardio: Rate: regular rate Rhythm: regular rhythm GI: Palpation (GI): Soft to palpation Auscultation: normal bowel sounds Skin: General skin exam: no rashes or lesions noted Neuro: General: patient oriented x3 Cranial nerves: Yes Equal, round and reactive pupils present Cognition (Neuro): normal cognition Extrem: General: Yes normal to inspection and Yes no pedal edema Results Labs 04/18/22 03:47 04/18/22 03:47 Labs: Laboratory Results - last 24 hr 04/18/22 04/18/22 04/18/22 03:46 03:47 03:47 MCV 93.3 MCH 27.2 MCHC 29.1 L RDW 16.6 H Plt Count 131 L D MPV 10.5 Immature Gran % (Auto) 0.7 H Neut % (Auto) 70.4 Lymph % (Auto) 15.7 L [place] % (Auto) 10.7 Eos % (Auto) 1.8 Baso % (Auto) 0.7 Lymph # (Auto) 0.7 L [place] # (Auto) 0.5 Eos # (Auto) 0.1 Baso # (Auto) 0.0 Abs Immat Gran (auto) 0.03 Absolute Neuts (auto) 3.2 Absolute Nucleated RBC 0.000 Nucleated RBC % (auto) 0.0 PT 12.5 INR 1.1 Anion Gap Estim Creat Clear Calc Estimated GFR Random Glucose Calcium Total Bilirubin AST ALT Alkaline Phosphatase Troponin I High Sens B-Natriuretic Peptide 383 H Total Protein Albumin Stool Occult Blood Blood Type Antibody Screen Crossmatch 04/18/22 04/18/22 04/18/22 03:47 03:47 04:12 MCV MCH MCHC RDW Plt Count MPV Immature Gran % (Auto) Neut % (Auto) Lymph % (Auto) [place] % (Auto) Eos % (Auto) Baso % (Auto) Lymph # (Auto) [place] # (Auto) Eos # (Auto) Baso # (Auto) Abs Immat Gran (auto) Absolute Neuts (auto) Absolute Nucleated RBC Nucleated RBC % (auto) PT INR Anion Gap 12 Estim Creat Clear Calc 70.0 Estimated GFR > 60 Random Glucose 311 H Calcium 8.5 Total Bilirubin 0.5 AST 9 ALT < 6 Alkaline Phosphatase 47 Troponin I High Sens 47.1 H B-Natriuretic Peptide Total Protein 5.6 L Albumin 3.4 L Stool Occult Blood Blood Type A Positive Antibody Screen NEGATIVE Crossmatch See Detail 04/18/22 04:46 MCV MCH MCHC RDW Plt Count MPV Immature Gran % (Auto) Neut % (Auto) Lymph % (Auto) [place] % (Auto) Eos % (Auto) Baso % (Auto) Lymph # (Auto) [place] # (Auto) Eos # (Auto) Baso # (Auto) Abs Immat Gran (auto) Absolute Neuts (auto) Absolute Nucleated RBC Nucleated RBC % (auto) PT INR Anion Gap Estim Creat Clear Calc Estimated GFR Random Glucose Calcium Total Bilirubin AST ALT Alkaline Phosphatase Troponin I High Sens B-Natriuretic Peptide Total Protein Albumin Stool Occult Blood POSITIVE Blood Type Antibody Screen Crossmatch ECG Interpretation: EKG shows ST depressions in the inferior lateral leads not present on previous EKG Imaging Radiologist's Impressions: Impressions Chest X-Ray 04/18/22 04:25 IMPRESSION: Mild, ill-defined streaky bibasilar opacities, which could reflect atelectasis or potentially developing consolidation in the proper clinical setting. Assessment and Plan (1) Severe anemia: Status: Acute (2) GI (gastrointestinal bleed): Status: Acute (3) Abnormal EKG: Status: Acute (4) CHF exacerbation: Status: Acute (5) ACS (acute coronary syndrome): Status: Acute Plan This is a 77-year-old male with past medical history of diabetes, CKD, as well as hypertension who presents to the hospital with complaints of shortness of breath, found to have CHF as well as acute anemia # acute CHF exacerbation - likely secondary to acute anemia versus NSTEMI - patient on 60 of Lasix daily p.o. - will treat with Lasix - cardiology consulted - monitor BP - should to I&O, daily weight, low-sodium diet # acute on chronic anemia - hemoglobin dropped to less than 7 since December - positive stool occult blood - patient denies any melena, hematochezia, hemoptysis or hematemesis - in transfuse 2 units of PRBC - follow CBC - GI consulted # NSTEMI - patient has ST depressions as well as T-wave inversions in inferior lateral leads - discussed with Cardiology, this time will monitor # diabetes - low-dose sliding scale insulin - diabetic diet # hypertension - soft - hold antihypertensives DVT prophylaxis: SCDs in the setting of GI bleed Given patient's acute NSTEMI as well as acute on chronic anemia as well as CHF exacerbation requiring IV Lasix patient required minimal 2 nights inpatient hospital stay for further management and monitoring Time Spent With Patient Time: Total time managing care of this patient today ____ minutes. Quality Stroke Does the patient have a stroke diagnosis?: No VTE Prior VTE?: No VTE Risk Level:: Medical - moderate - high VTE Device Contraindication: Treatment Not Indicated VTE Drug Contraindication: N/A - Med Ordered
--- NOTE | 2022-04-18 06:23 | PC.NURSE ---
T/c placed to hospitalist regarding ordered blood work. Rn inquired when should troponin and cbc be drawn. Per Dr. Mahamed moran to draw troponin now CBC after second unit.
[2022-04-18 06:53] LABS: Glucose, Whole Blood 322 mg/dL (60-115)
[2022-04-18 06:54] LABS: Troponin-I High Sensitivity 46.1 ng/L (<3.5-35.0)
[2022-04-18] MEDS: LORazepam 1 MG TABLET PO (07:33)
[2022-04-18 07:34] LABS: COVID-19 Test Negative (Negative); IDNOW Serial# BCCEAD1C
--- NOTE | 2022-04-18 07:38 | PC.NURSE ---
computer system having malfunction not allowing staff to use emar temporarily. pt second unit of blood actually started at 0720 this am, unable to reflect actual time in tar. administration did not exceed 15 minute transport time.
[2022-04-18 08:54] LABS: MANUAL DIFF FLAG NO
[2022-04-18 09:00] LABS: Basophils Percent Auto 0.7 % (0-2); Eosinophils Percent Auto 0.3 % (0-4); Hematocrit 29.2 % (42.0-52.0); Imm Gran Abs Auto 0.05 X10*3/uL (0.00-0.03); Imm Gran Pct Auto 0.8 % (0.0-0.4); Lymphocytes Absolute Auto 0.5 X10*3/uL (1.2-4.9); Lymphocytes Percent Auto 8.9 % (20-40); Mean Corpuscular HGB Conc 30.8 g/dl (31.0-36.0); Mean Corpuscular Hemoglobin 28.2 pg (27.0-33.0); Mean Corpuscular Volume 91.5 fL (80.0-98.0); Monocytes Absolute Auto 0.5 X10*3/uL (0.1-1.2); Monocytes Percent Auto 8.9 % (2-11); Neutrophils Absolute Auto 4.9 x10*3/uL (2.0-8.3); Neutrophils Percent Auto 80.4 % (45-73); Platelet Count 154 X10*3/uL (160-400); Red Blood Count 3.19 X10*6/uL (4.60-5.80)
[2022-04-18 09:12] LABS: Anion Gap 14 (12-20); Blood Urea Nitrogen 13 mg/dL (9-16); Calcium 8.4 mg/dL (8.4-10.2); Carbon Dioxide 23 mmol/L (22-29); Chloride 102 mmol/L (96-108); Creatinine Clr Calc Pharmacy 65.5; Estimated Glomerular Filt Rate > 60; Glucose Random 304 mg/dL (60-115); Potassium 4.2 mmol/L (3.3-5.1); Sodium 135 mmol/L (135-145)
--- NOTE | 2022-04-18 09:29 | P.CONCA_ITS ---
History of Present Illness History of Present Illness Date of Service: 04/18/22 Chief complaint: Anemia Narrative: This is a cardiology consultation regarding an abnormal EKG. Patient denies any history of cardiovascular issues. He denies any history of coronary artery disease or myocardial infarction or cardiomyopathy or in fact any other cardiac issues. He states that he can generally ambulate with a walker and does not really have any major issues. There is a discrepancy in what the patient states and what is documented in the H& P. H&P states that he was admitted for compla ints of shortness of breath, orthopnea and PND. When I questioned him, he states that he rather just noted some chest pain, poorly characterized but feels fine now. Review of Systems Review of Systems: Yes all other systems are reviewed and are negative Constitutional: Constitutional: Reports as per HPI Eyes: Eyes: Reports as per HPI ENT: Reports as per HPI Cardiovascular: Cardiovascular: Reports as per HPI, Denies acrocyanosis, Denies cool extremities, Reports chest pain, Denies leg edema, Denies lightheadedness, Denies palpitations and Reports dyspnea Respiratory: Respiratory: Reports as per HPI, Reports no additional respiratory complaints and Reports dyspnea Gastrointestinal: Gastrointestinal: Reports as per HPI and Reports no additional gastrointestinal complaints Genitourinary: Genitourinary: Reports no additional male genitourinary complaints and Reports as per HPI Musculoskeletal: Musculoskeletal: Reports no additional musculoskeletal complaints and Reports as per HPI Integumentary/Breasts: Skin/Breast: Reports system reviewed and no additional complaints, except as docu Neurologic: Reports system reviewed and no additional complaints, except as documented and Reports as per HPI Psychiatric: Psychiatric: Reports no additional psychiatric complaints and Reports as per HPI Endocrine: Endocrine: Reports no additional endocrine complaints, Reports as per HPI and Denies palpitations Hematologic/Lymphatic: Hematologic/Lymphatic: Reports no additional hematologic/lymphatic complaints and Reports as per HPI Allergic/Immunologic: Allergic/Immunologic: Reports no additional allergic/imm unologic complaints and Reports as per HPI PMFSH Past Medical History Medical History Anemia, unspecified CKD stage 3 due to type 2 diabetes mellitus Diabetes GERD (gastroesophageal reflux disease) Hypertension Neuropathy Family History Family History Mother No problems noted. Father No problems noted. Surgical History Surgical History History of bilateral knee replacement Social History Social History Alcohol intake: current Alcohol intake frequency: a few times a week Alcohol type: hard liquor Smoked in Last 30 Days: No Use of substances other than those prescribed or required for medical reasons: No Advance Directives: No Advance Directives Date on File: 01/11/20 Meds Allergies Allergy/AdvReac Type Severity Reaction Status Date / Time No Known Allergies Allergy Mild NONE Unverified 12/09/19 17:36 Active Medications: Current Medications Acetaminophen (Acetaminophen 325 Mg Tablet) 650 mg PO Q6H PRN PRN Reason: Pain, Mild (Pain Scale 1-3) Docusate Sodium (Docusate Sodium 100 Mg Capsule) 100 mg PO DAILY PRN PRN Reason: Constipation Ondansetron HCl (Ondansetron Hcl 4 Mg/2 Ml Vial) 4 mg IVPUSH Q8H PRN PRN Reason: Nausea and Vomiting Pharmacy Consult (Consult Rx Perform Med Rec) 1 each MISCELLANE ONCE PRN PRN Reason: Consult order Sodium Chloride (0.9 % Sodium Chloride Flush 3 Ml Syringe) 3 ml IVFLUSH QSHIFT [facility] Last Admin: 04/18/22 07:32 Dose: Not Given Home Medications Medication Instructions Recorded Confirmed Last Taken Type acetaminophen See Rx Instructions .Route .COMPLEX 04/18/22 04/18/22 Unknown Hist ory Physical Exam Vital Signs: Vital Signs: Last Vital Signs Temp 97.9 F 04/18/22 08:33 Pulse 86 04/18/22 08:33 Resp 19 04/18/22 08:33 BP 97/59 L 04/18/22 08:33 Pulse Ox 96 04/18/22 08:33 O2 Del Method 04/18/22 08:33 O2 Flow Rate 2 04/18/22 06:11 BMI result Body Mass Index 30.9 Const: General: comfortable and no acute distress Orientation/consciousness: patient oriented x3 HEENT: Other: Unremarkable Head: Yes normal to inspection Neck: Neck: Yes normal visual inspection Chest: Chest palpation & inspection: normal inspection of the chest Resp: Auscultation: clear to auscultation bilaterally Cardio: Palpation: normal PMI Heart sounds: S1 normal heart sound present, S2 abnormal, no gallops, Murmur heart sound present systolic III/ and at the right sternal border and no rubs GI: Palpation (GI): Soft to palpation Back/Spine/Pelvis: Other: unremarkable Skin: General skin exam: no rashes or lesions noted Neuro: General: patient oriented x3 Extrem: General: Yes normal to inspection Psych: Mental Status: mental status grossly normal Objective Labs and Meds 04/18/22 08:45 04/18/22 08:45 Lab results: Laboratory Results - last 24 hr 04/18/22 04/18/22 04/18/22 03:46 03:47 03:47 WBC 4.5 L RBC 2.39 L D Hgb 6.5 L* D Hct 22.3 L D MCV 93.3 MCH 27.2 MCHC 29.1 L RDW 16.6 H Plt Count 131 L D MPV 10.5 Immature Gran % (Auto) 0.7 H Neut % (Auto) 70.4 Lymph % (Auto) 15.7 L [place] % (Auto) 10.7 Eos % (Auto) 1.8 Baso % (Auto) 0.7 Lymph # (Auto) 0.7 L [place] # (Auto) 0.5 Eos # (Auto) 0.1 Baso # (Auto) 0.0 Abs Immat Gran (auto) 0.03 Absolute Neuts (auto) 3.2 Absolute Nucleated RBC 0.000 Nucleated RBC % (auto) 0.0 PT 12.5 INR 1.1 Sodium Potassium Chloride Carbon Dioxide Anion Gap BUN Creatinine Estim Creat Clear Calc Estimated GFR POC Glucose Random Glucose Calcium Total Bilirubin AST ALT Alkaline Phosphatase Troponin I High Sens B-Natriuretic Peptide 383 H Total Protein Albumin Stool Occult Blood COVID-19 (JULIANNE) COVID-19 Clin Com Blood Type Antibody Screen Crossmatch 04/18/22 04/18/22 04/18/22 03:47 03:47 04:12 WBC RBC Hgb Hct MCV MCH MCHC RDW Plt Count MPV Immature Gran % (Auto) Neut % (Auto) Lymph % (Auto) [place] % (Auto) Eos % (Auto) Baso % (Auto) Lymph # (Auto) [place] # (Auto) Eos # (Auto) Baso # (Auto) Abs Immat Gran (auto) Absolute Neuts (auto) Absolute Nucleated RBC Nucleated RBC % (auto) PT INR Sodium 134 L Potassium 4.2 Chloride 103 Carbon Dioxide 23 Anion Gap 12 BUN 13 Creatinine 1.02 Estim Creat Clear Calc 70.0 Estimated GFR > 60 POC Glucose Random Glucose 311 H Calcium 8.5 Total Bilirubin 0.5 AST 9 ALT < 6 Alkaline Phosphatase 47 Troponin I High Sens 47.1 H B-Natriuretic Peptide Total Protein 5.6 L Albumin 3.4 L Stool Occult Blood COVID-19 (JULIANNE) COVID-[employer] Clin Com Blood Type A Positive Antibody Screen NEGATIVE Crossmatch See Detail 04/18/22 04/18/22 04/18/22 04:46 06:27 06:38 WBC RBC Hgb Hct MCV MCH MCHC RDW Plt Count MPV Immature Gran % (Auto) Neut % (Auto) Lymph % (Auto) [place] % (Auto) Eos % (Auto) Baso % (Auto) Lymph # (Auto) [place] # (Auto) Eos # (Auto) Baso # (Auto) Abs Immat Gran (auto) Absolute Neuts (auto) Absolute Nucleated RBC Nucleated RBC % (auto) PT INR Sodium Potassium Chloride Carbon Dioxide Anion Gap BUN Creatinine Estim Creat Clear Calc Estimated GFR POC Glucose Random Glucose Calcium Total Bilirubin AST ALT Alkaline Phosphatase Troponin I High Sens 46.1 H B-Natriuretic Peptide Total Protein Albumin Stool Occult Blood POSITIVE COVID-19 (JULIANNE) Negative [employer] See Note Blood Type Antibody Screen Crossmatch 04/18/22 04/18/22 04/18/22 06:50 08:45 08:45 WBC 6.0 RBC 3.19 L D Hgb 9.0 L D Hct 29.2 L D MCV 91.5 MCH 28.2 MCHC 30.8 L RDW 16.0 Plt Count 154 L MPV 12.0 Immature Gran % (Auto) 0.8 H Neut % (Auto) 80.4 H Lymph % (Auto) 8.9 L [place] % (Auto) 8.9 Eos % (Auto) 0.3 Baso % (Auto) 0.7 Lymph # (Auto) 0.5 L [place] # (Auto) 0.5 Eos # (Auto) 0.0 Baso # (Auto) 0.0 Abs Immat Gran (auto) 0.05 H Absolute Neuts (auto) 4.9 Absolute Nucleated RBC 0.000 Nucleated RBC % (auto) 0.0 PT INR Sodium 135 Potassium 4.2 Chloride 102 Carbon Dioxide 23 Anion Gap 14 BUN 13 Creatinine 1.09 Estim Creat Clear Calc 65.5 Estimated GFR > 60 POC Glucose 322 H Random Glucose 304 H Calcium 8.4 Total Bilirubin AST ALT Alkaline Phosphatase Troponin I High Sens B-Natriuretic Peptide Total Protein Albumin Stool Occult Blood COVID-19 (JULIANNE) COVID-19 Clin Com Blood Type Antibody Screen Crossmatch ECG Interpretation: EKG with sinus rhythm at 95/Min; inferior as well as anterolateral ST depression with T inversions. Prior EKGs from 2007 and changes noted. Imaging Radiologist's impression: Impressions Chest X-Ray 04/18/22 04:25 IMPRESSION: Mild, ill-defined streaky bibasilar opacities, which could reflect atelectasis or potentially developing consolidation in the proper clinical setting. Assessment and Plan (1) Severe anemia: Status: Acute (2) Non-rheumatic aortic stenosis: Status: Acute Plan Labs reviewed. Low-grade troponin leak at 47 and 46. Cardiac BNP 383. Stool occult blood positive. Hemoglobin 6.5 on arrival. Repeat is 9. Echocardiogram from [facility] from 04/01/2022-low normal LVEF but not quantified; severe aortic stenosis. Peak gradient 86 mm Hg and mean of 41 mm Hg. Calculated valve area of 0.5 sq cm. Unknown coronary status. Multiple medical comorbidities. At this time, main recommendation is to keep him appropriately transfused and also ensure it isn't going to heart failure. Diuretics as needed. From the cardiac standpoint, will need a diagnostic catheterization followed by TAVR assessment. May need to be transferred to [facility]. Depends on family preference. Concurrent anemia/GI bleed will be a major issue. Discussed with Dr. Andrade. Time Spent With Patient Time: Total time managing care of this patient today 75 minutes. Procedures Date of Service Date of Service: 04/18/22
--- NOTE | 2022-04-18 10:05 | PHA.MEDREC ---
Pharmacy Consult ? Medication Reconciliation Pharmacy has completed the medication reconciliation. Completed with list from [facility]
--- NOTE | 2022-04-18 12:28 | P.EN_ITS ---
Event Note Date of Service: 04/18/22 Event Note: Seen and evaluated this morning Hemoglobin improved to 9 from 6.5 after 2 units transfusion No overt bleeding noticed Echo reporting severe aortic stenosis Cardiology input appreciated, if any procedures to be done ideally should be done at [facility], dura takes as needed Patient will need diagnostic catheterization followed by TAVR assessment GI input appreciated, the patient cannot be transferred to [facility] for EGD he can follow-up with GI as outpatient urgently to arrange for it Continue to monitor H and H Time Spent With Patient Time: Total time managing care of this patient today ____ minutes.
--- NOTE | 2022-04-18 13:46 | MHC.CM.PN ---
IMM/ 04/18/22, EMR REVIEWED, PT ADMITTED W/ANEMIA, CM MET W/PT WHO IS A&O, PT REPORTS HE LIVES AT [facility], AMBUULATES W/A WALKER AND REPORTS HE COMPLETES HIS ADL'S/SHOWERS INDEPENDENTLY, PLAN WILL BE FOR PT TO RETURN TO [facility] WHEN MEDICALLY CLEARED AND PT WILL NEED TRANSPORT. HCP/MOLST PROVIDED BY [facility] AND IN CHART, COVID VACC X5 AND PCP IS ONEIDA CASIANO.
--- NOTE | 2022-04-18 14:17 | PM.DS ---
DS: Providers Provider Date of Service: 04/18/22 Date of admission: 04/18/22 05:31 Primary care physician: Farrah Tipton NP Consults: 04/18/22 05:31 Consult to Gastroenterology Routine Consulting Provider: Charlene Thayer Reason for consultation: anemia, guaic positrive Has provider been notified: No 04/18/22 06:04 Consult to Cardiology Routine Consulting Provider: Julio Toledo Reason for consultation: CHF w Severe Has provider been notified: No DS: Diagnosis Discharge Diagnosis (1) Severe anemia: Status: Acute (2) Non-rheumatic aortic stenosis: Status: Acute (3) CHF exacerbation: Status: Acute (4) GI (gastrointestinal bleed): Status: Acute DS: Summary Hospital Course Hospital Course: Admission note HPI 77-year-old male with past medical history of CKD stage 3, type 2 diabetes, GERD, iron deficiency anemia, hypertension, liver cirrhosis, presents to the hospital with complaints of shortness of breath, orthopnea, PND.? Patient denies having any cough, no fever chills, no chest pain, no palpitations, no abdominal pain, no nausea or vomiting, he reports no urinary symptoms and no lower extremity edema.? Reports no melena or hematochezia.? No hemoptysis or hematemesis.?Patient is a resident of [place].? On arrival to the ED patient has a temperature of 99 degrees, respiratory rate of 20, heart rate of 95, satting 99% on room air Labs are significant for WBC count of 4.5, hemoglobin of 6.5 with a baseline around 10.3 from December of 2021, hematocrit of 22.3, sodium of 134, troponin of 47.1, BNP of 383 with no previous for comparison, Stool occult blood positive Chest x-ray shows ill-defined streaky bibasilar opacities which reflect a to lactase is versus consolidation. Patient being transfused 2 units of PRBC and will be admitted for further management Hospital course The patient was admitted to the hospital for evaluation of acute on chronic symptomatic anemia with positive occult blood stool but no reported melena or bleeding. Received 2 unit transfusion with good response as hemoglobin improved from 6.5-9 overnight. The patient shortness of breath improved significantly after that. Of evaluated by patient relations specialist who recommended EGD to start. Evaluated by surveyor rod helper Dr. Toledo who report noted that the patient need diagnostic catheterization followed by TAVR assessment as he will need an upper endoscopy to be done and the right sitting. To use diuretics as needed for fluid overload management. To be transferred to [facility] for upper endoscopy and further evaluation for severe aortic stenosis Time Spent with Patient Time attestation: Total time managing care of this patient today ____ minutes. Discharge coordination time: Greater than 30 minutes Quality: Safe Use of Opioids Does Pt have an Active Cancer Diagnosis on the Problem List?: No Quality: Stroke Does the patient have a stroke diagnosis?: No Physical Exam Vital Signs: Vital Signs: Last Vital Signs Temp 98.0 F 04/18/22 11:15 Pulse 82 04/18/22 11:15 Resp 16 04/18/22 11:15 BP 111/58 L 04/18/22 11:15 Pulse Ox 97 04/18/22 11:15 O2 Del Method 04/18/22 11:15 O2 Flow Rate 2 04/18/22 06:11 BMI result Body Mass Index 30.9 Const: Other: Constitutional : Awake, interactive, not in distress Neck : Normal inspection, Supple Cardiovascular : RRR, no JVP, systolic murmur, +1 bilateral lower extremity edema Respiratory : good bilateral air entry, no crackles, wheezes or rhonchi Gastrointestinal: soft, lax, Normal bowel sounds, Non tender Skin : Warm, Dry Neurological : Alert & oriented x3, No focal deficit , CN 2-12 within normal DS: Data Data Completed and Pending Labs on day of discharge: Laboratory Results - last 24 hr 04/18/22 04/18/22 04/18/22 03:46 03:47 03:47 WBC 4.5 L RBC 2.39 L D Hgb 6.5 L* D Hct 22.3 L D MCV 93.3 MCH 27.2 MCHC 29.1 L RDW 16.6 H Plt Count 131 L D MPV 10.5 Immature Gran % (Auto) 0.7 H Neut % (Auto) 70.4 Lymph % (Auto) 15.7 L [place] % (Auto) 10.7 Eos % (Auto) 1.8 Baso % (Auto) 0.7 Lymph # (Auto) 0.7 L [place] # (Auto) 0.5 Eos # (Auto) 0.1 Baso # (Auto) 0.0 Abs Immat Gran (auto) 0.03 Absolute Neuts (auto) 3.2 Absolute Nucleated RBC 0.000 Nucleated RBC % (auto) 0.0 PT 12.5 INR 1.1 Sodium Potassium Chloride Carbon Dioxide Anion Gap BUN Creatinine Estim Creat Clear Calc Estimated GFR POC Glucose Random Glucose Calcium Total Bilirubin AST ALT Alkaline Phosphatase Troponin I High Sens B-Natriuretic Peptide 383 H Total Protein Albumin Stool Occult Blood COVID-19 (JULIANNE) COVID-19 [facility] Blood Type Antibody Screen Crossmatch 04/18/22 04/18/22 04/18/22 03:47 03:47 04:12 WBC RBC Hgb Hct MCV MCH MCHC RDW Plt Count MPV Immature Gran % (Auto) Neut % (Auto) Lymph % (Auto) [place] % (Auto) Eos % (Auto) Baso % (Auto) Lymph # (Auto) [place] # (Auto) Eos # (Auto) Baso # (Auto) Abs Immat Gran (auto) Absolute Neuts (auto) Absolute Nucleated RBC Nucleated RBC % (auto) PT INR Sodium 134 L Potassium 4.2 Chloride 103 Carbon Dioxide 23 Anion Gap 12 BUN 13 Creatinine 1.02 Estim Creat Clear Calc 70.0 Estimated GFR > 60 POC Glucose Random Glucose 311 H Calcium 8.5 Total Bilirubin 0.5 AST 9 ALT < 6 Alkaline Phosphatase 47 Troponin I High Sens 47.1 H B-Natriuretic Peptide Total Protein 5.6 L Albumin 3.4 L Stool Occult Blood COVID-19 (JULIANNE) COVID-[facility] Blood Type A Positive Antibody Screen NEGATIVE Crossmatch See Detail 04/18/22 04/18/22 04/18/22 04:46 06:27 06:38 WBC RBC Hgb Hct MCV MCH MCHC RDW Plt Count MPV Immature Gran % (Auto) Neut % (Auto) Lymph % (Auto) [place] % (Auto) Eos % (Auto) Baso % (Auto) Lymph # (Auto) [place] # (Auto) Eos # (Auto) Baso # (Auto) Abs Immat Gran (auto) Absolute Neuts (auto) Absolute Nucleated RBC Nucleated RBC % (auto) PT INR Sodium Potassium Chloride Carbon Dioxide Anion Gap BUN Creatinine Estim Creat Clear Calc Estimated GFR POC Glucose Random Glucose Calcium Total Bilirubin AST ALT Alkaline Phosphatase Troponin I High Sens 46.1 H B-Natriuretic Peptide Total Protein Albumin Stool Occult Blood POSITIVE COVID-19 (JULIANNE) Negative COVID-19 Clin Com See Note Blood Type Antibody Screen Crossmatch 04/18/22 04/18/22 04/18/22 06:50 08:45 08:45 WBC 6.0 RBC 3.19 L D Hgb 9.0 L D Hct 29.2 L D MCV 91.5 MCH 28.2 MCHC 30.8 L RDW 16.0 Plt Count 154 L MPV 12.0 Immature Gran % (Auto) 0.8 H Neut % (Auto) 80.4 H Lymph % (Auto) 8.9 L [place] % (Auto) 8.9 Eos % (Auto) 0.3 Baso % (Auto) 0.7 Lymph # (Auto) 0.5 L [place] # (Auto) 0.5 Eos # (Auto) 0.0 Baso # (Auto) 0.0 Abs Immat Gran (auto) 0.05 H Absolute Neuts (auto) 4.9 Absolute Nucleated RBC 0.000 Nucleated RBC % (auto) 0.0 PT INR Sodium 135 Potassium 4.2 Chloride 102 Carbon Dioxide 23 Anion Gap 14 BUN 13 Creatinine 1.09 Estim Creat Clear Calc 65.5 Estimated GFR > 60 POC Glucose 322 H Random Glucose 304 H Calcium 8.4 Total Bilirubin AST ALT Alkaline Phosphatase Troponin I High Sens B-Natriuretic Peptide Total Protein Albumin Stool Occult Blood COVID-19 (JULIANNE) COVID-19 Clin Com Blood Type Antibody Screen Crossmatch Imaging Chest x-ray: Radiologist's impression: ITS Impressions Chest X-Ray 04/18/22 04:25 IMPRESSION: Mild, ill-defined streaky bibasilar opacities, which could reflect atelectasis or potentially developing consolidation in the proper clinical setting. Discharge Plan Discharge Anticipated Discharge Date/Time: 04/18/22 14:14 Patient Disposition: Xfer Acute Care Hospital Discharge Diagnosis: Acute CHF exacerbation GIB symptomatic anemia Severe Referrals: Farrah Tipton NP [Primary Care Provider] - 1 Week Discharge Medications: Continued furosemide 40 mg Tablet 40 mg PO Q OTHER DAY terbinafine HCl 1 % Cream 1 appl TOPICAL BID insulin glargine 100 unit/mL Solution 30 unit SUBCUT BEDTIME cyanocobalamin (vitamin B-12) 1,000 mcg Tablet 1,000 mcg PO DAILY melatonin 3 mg Tablet 3 mg PO BEDTIME PRN (Reason: Insomnia) dextromethorphan-guaifenesin 10-100 mg/5 mL Syrup 10 ml PO Q4-6H PRN (Reason: Cough) aspirin 81 mg Tablet,Delayed Release (Dr/Ec) 81 mg PO DAILY acetaminophen 650 mg Tablet 650 mg PO Q4H PRN (Reason: Pain) spironolactone 25 mg Tablet 25 mg PO DAILY bisacodyl 10 mg Suppository 10 mg RI DAILY PRN (Reason: Constipation) ferrous sulfate 325 mg (65 mg iron) Tablet 325 mg PO BID Fleet Enema 19-7 gram/118 mL Enema 118 ml RI DAILY PRN (Reason: Constipation) furosemide 20 mg Tablet 20 mg PO Q OTHER DAY insulin lispro 100 unit/mL Solution 4 - 16 unit SUBCUT BID Rx Instructions: SLIDING SCALE loratadine 10 mg Tablet 10 mg PO DAILY PRN (Reason: Allergic Reaction) lactulose 10 gram/15 mL Solution 10 g PO BID cholecalciferol (vitamin D3) 50 mcg (2,000 unit) Capsule 50 mcg PO DAILY Discharge Orders: Discharge Order (Routine); Ordered 04/18/22 Ordered By: Olivia Andrade Diet: Advance to usual diet Activity on Discharge: As tolerated Stand Alone Forms: Patient Portal Discharge page Care Plan Goals: Read below Health Concerns: Read below Plan of Treatment: Read below Assessment: You have presented to the hospital with difficulty breathing. Found to have acute on chronic anemia with hemoglobin of 6.5 responded well to 2 units of blood improving back to 9. Chest x-ray consistent with heart failure exacerbation. Evaluated by patient relations specialist who recommends upper endoscopy. Cardiology saw you for history of severe aortic stenosis and recommended transferred to [facility] to do the procedure and the close supervision. To be transferred to [facility] for upper endoscopy and further evaluation for severe aortic stenosis
--- NOTE | 2022-04-18 14:48 | MHC.CM.PN ---
Addendum entered by Keri Rojas RN 04/18/22 15:05: CM NOTIFIED H OF OF PLAN FOR TRANSFER [place] [facility] AND ATTEMPTED TO CONTACT PTS' SON/HCP BILL AT 2:58PM ON NUMBER ON FILE, DETAILED MESSAGE LEFT. Original Note: PER NSG PT WILL TRANSFER TO [facility].
[2022-04-18] MEDS: 0.9 % Sodium Chloride Flush 3 ML SYRINGE IVFLUSH (16:17)
== END 2022-04-18 17:45 | disposition short-term general hospital (02) | DRG 281 ==
LOC: HO.ED 03:47 → HO.EDOVER 05:35 → HO.S3 08:18
PROVIDERS: Admitting Provider Internal Medicine; Emergency Provider Internal Medicine; PCP Nurse Practitioner; Visit Provider Student in an Organized Health Care Education/Training Program
DX: I21.4 Non-ST elevation (NSTEMI) myocardial infarction (principal); I13.0 Hypertensive heart and chronic kidney disease with heart failure and stage 1 through stage 4 chronic kidney disease, or unspecified chronic kidney disease; K92.2 Gastrointestinal hemorrhage, unspecified; K21.9 Gastro-esophageal reflux disease without esophagitis; E11.40 Type 2 diabetes mellitus with diabetic neuropathy, unspecified; E78.5 Hyperlipidemia, unspecified; K70.30 Alcoholic cirrhosis of liver without ascites; F03.90 Unspecified dementia, unspecified severity, without behavioral disturbance, psychotic disturbance, mood disturbance, and anxiety; E11.22 Type 2 diabetes mellitus with diabetic chronic kidney disease; N18.30 Chronic kidney disease, stage 3 unspecified; I50.9 Heart failure, unspecified; I35.0 Nonrheumatic aortic (valve) stenosis; Z20.822 Contact with and (suspected) exposure to COVID-19; Z87.891 Personal history of nicotine dependence; Z79.4 Long term (current) use of insulin; Z79.82 Long term (current) use of aspirin; Z79.899 Other long term (current) drug therapy
CPT/HCPCS: 36415; 71045; 80048; 80053; 82272; 82947; 83880; 84484; 85025; 85610; 86850; 86900; 86901; 86923; 87635; 93005; 99221; 99285; J1940; P9016; Q9957

== ENCOUNTER 2022-04-29 05:47 | Outpatient (REF) | payer OTHER, SELFPAY ==
[2022-04-29 07:47] LABS: MANUAL DIFF FLAG NO
[2022-04-29 08:02] LABS: Basophils Absolute Auto 0.1 X10*3/uL (0.0-0.2); Basophils Percent Auto 0.9 % (0-2); Eosinophils Absolute Auto 0.2 X10*3/uL (0.0-0.4); Eosinophils Percent Auto 2.7 % (0-4); Hematocrit 27.6 % (42.0-52.0); Hemoglobin 8.1 g/dl (14.0-18.0); Imm Gran Abs Auto 0.04 X10*3/uL (0.00-0.03); Imm Gran Pct Auto 0.7 % (0.0-0.4); Lymphocytes Absolute Auto 1.3 X10*3/uL (1.2-4.9); Lymphocytes Percent Auto 21.9 % (20-40); Mean Corpuscular HGB Conc 29.3 g/dl (31.0-36.0); Mean Corpuscular Hemoglobin 26.4 pg (27.0-33.0); Mean Corpuscular Volume 89.9 fL (80.0-98.0); Mean Platelet Volume 11.9 fL (9.4-12.4); Monocytes Absolute Auto 0.6 X10*3/uL (0.1-1.2); Neutrophils Absolute Auto 3.7 x10*3/uL (2.0-8.3); Neutrophils Percent Auto 62.8 % (45-73); Platelet Count 168 X10*3/uL (160-400); Red Blood Count 3.07 X10*6/uL (4.60-5.80); Red Cell Distribution Width 16.1 % (11.0-16.0); White Blood Count 5.8 X10*3/uL (4.8-10.8)
== END 2022-04-29 05:48 | disposition home or self-care (01) ==
LOC: HO.HSH3W 05:47
PROVIDERS: Visit Provider Internal Medicine
DX: D64.9 Anemia, unspecified (principal)
CPT/HCPCS: 36415; 85025

== ENCOUNTER 2022-05-06 06:28 | Outpatient (REF) | payer OTHER, SELFPAY ==
[2022-05-06 06:31] LABS: MANUAL DIFF FLAG NO
[2022-05-06 07:34] LABS: Basophils Absolute Auto 0.1 X10*3/uL (0.0-0.2); Basophils Percent Auto 1.1 % (0-2); Eosinophils Absolute Auto 0.1 X10*3/uL (0.0-0.4); Eosinophils Percent Auto 3.2 % (0-4); Hematocrit 25.5 % (42.0-52.0); Hemoglobin 7.7 g/dl (14.0-18.0); Imm Gran Abs Auto 0.02 X10*3/uL (0.00-0.03); Imm Gran Pct Auto 0.5 % (0.0-0.4); Lymphocytes Absolute Auto 1.1 X10*3/uL (1.2-4.9); Lymphocytes Percent Auto 24.4 % (20-40); Mean Corpuscular HGB Conc 30.2 g/dl (31.0-36.0); Mean Corpuscular Hemoglobin 27.1 pg (27.0-33.0); Mean Corpuscular Volume 89.8 fL (80.0-98.0); Monocytes Absolute Auto 0.8 X10*3/uL (0.1-1.2); Monocytes Percent Auto 18.7 % (2-11); Neutrophils Absolute Auto 2.3 x10*3/uL (2.0-8.3); Neutrophils Percent Auto 52.1 % (45-73); Platelet Count 139 X10*3/uL (160-400); Red Blood Count 2.84 X10*6/uL (4.60-5.80); Red Cell Distribution Width 15.8 % (11.0-16.0); White Blood Count 4.4 X10*3/uL (4.8-10.8)
== END 2022-05-06 06:29 | disposition home or self-care (01) ==
LOC: HO.HSH3W 06:28
PROVIDERS: Visit Provider Internal Medicine
DX: D64.9 Anemia, unspecified (principal); I35.0 Nonrheumatic aortic (valve) stenosis
CPT/HCPCS: 36415; 85025

== ENCOUNTER 2022-05-13 07:21 | Outpatient (REF) | payer OTHER, SELFPAY ==
[2022-05-13 07:24] LABS: MANUAL DIFF FLAG NO
[2022-05-13 07:27] LABS: Basophils Absolute Auto 0.1 X10*3/uL (0.0-0.2); Basophils Percent Auto 1.1 % (0-2); Eosinophils Absolute Auto 0.1 X10*3/uL (0.0-0.4); Hematocrit 30.7 % (42.0-52.0); Imm Gran Abs Auto 0.02 X10*3/uL (0.00-0.03); Imm Gran Pct Auto 0.4 % (0.0-0.4); Lymphocytes Percent Auto 20.7 % (20-40); Mean Corpuscular HGB Conc 29.3 g/dl (31.0-36.0); Mean Corpuscular Hemoglobin 26.6 pg (27.0-33.0); Mean Corpuscular Volume 90.8 fL (80.0-98.0); Mean Platelet Volume 11.9 fL (9.4-12.4); Monocytes Absolute Auto 0.5 X10*3/uL (0.1-1.2); Monocytes Percent Auto 10.6 % (2-11); Neutrophils Percent Auto 64.2 % (45-73); Platelet Count 184 X10*3/uL (160-400); Red Blood Count 3.38 X10*6/uL (4.60-5.80); Red Cell Distribution Width 16.4 % (11.0-16.0); White Blood Count 4.6 X10*3/uL (4.8-10.8)
== END 2022-05-13 07:22 | disposition home or self-care (01) ==
LOC: HO.HSH3W 07:21
PROVIDERS: Visit Provider Internal Medicine
DX: D64.9 Anemia, unspecified (principal)
CPT/HCPCS: 36415; 85025

== ENCOUNTER 2022-05-20 06:28 | Outpatient (REF) | payer OTHER, SELFPAY ==
[2022-05-20 06:30] LABS: MANUAL DIFF FLAG NO
[2022-05-20 06:43] LABS: Basophils Absolute Auto 0.1 X10*3/uL (0.0-0.2); Basophils Percent Auto 1.2 % (0-2); Eosinophils Absolute Auto 0.1 X10*3/uL (0.0-0.4); Eosinophils Percent Auto 2.5 % (0-4); Hematocrit 32.2 % (42.0-52.0); Hemoglobin 9.8 g/dl (14.0-18.0); Imm Gran Abs Auto 0.01 X10*3/uL (0.00-0.03); Imm Gran Pct Auto 0.2 % (0.0-0.4); Lymphocytes Percent Auto 23.6 % (20-40); Mean Corpuscular HGB Conc 30.4 g/dl (31.0-36.0); Mean Corpuscular Hemoglobin 27.1 pg (27.0-33.0); Mean Platelet Volume 11.9 fL (9.4-12.4); Monocytes Absolute Auto 0.5 X10*3/uL (0.1-1.2); Neutrophils Absolute Auto 2.6 x10*3/uL (2.0-8.3); Neutrophils Percent Auto 60.5 % (45-73); Platelet Count 146 X10*3/uL (160-400); Red Blood Count 3.62 X10*6/uL (4.60-5.80); White Blood Count 4.3 X10*3/uL (4.8-10.8)
== END 2022-05-20 06:29 | disposition home or self-care (01) ==
LOC: HO.HSH3W 06:28
PROVIDERS: Visit Provider Internal Medicine
DX: D64.9 Anemia, unspecified (principal)
CPT/HCPCS: 36415; 85025

== ENCOUNTER → 2022-05-27 13:27 | Outpatient (REF) | payer OTHER, SELFPAY ==
--- NOTE | 2022-05-27 13:33 | CA_ITS ---
Transthoracic Echocardiogram Patient (Last, First, Middle): Roland Couch, Gender: Male Date of : 1945 Age: 77 Procedure Date: 05/27/2022 Procedure Type: Transthoracic Echocardiogram Location: OP Height: 180.34 cm Weight: 90.72 kg BSA: 2.11 m2 Heart Rate: 70 bpm BP: 100 / 50 mmHg Legal Contracts Specialist: OSCAR Referring MD: Julio Toledo MD Symptoms: I35.0 - Nonrheumatic aortic (valve) stenosis Study Quality: Fair/Contrast ECG Rhythm: Sinus Conclusions: - The left ventricular systolic function is low normal. The calculated ejection fraction is 52% by biplane method. - A bioprosthetic aortic valve is present. The prosthetic aortic valve appears to be functioning normally. - There is severe mitral annular calcification. There is moderate mitral valve stenosis. Findings Procedure Information Contrast agent, definity, is being given per protocol without apparent complications. Left Ventricle Normal left ventricular cavity size. There is moderately increased left ventricular wall thickness. The left ventricular systolic function is low normal. The calculated ejection fraction is 52% by biplane method. There is mild global hypokinesis. Due to severe mitral annular calcification, unable to assess diastolic function. Right Ventricle Normal right ventricular cavity size. There is mildly decreased right ventricular systolic function. Atria Both atria are normal in size. Aortic Valve A bioprosthetic aortic valve is present. The prosthetic aortic valve appears to be functioning normally. The mean gradient is 5 mmHg. Possibly trivial aortic regurgitation, difficult to say valvular or paravalvular. Mitral Valve There is severe mitral annular calcification. There is no mitral valve regurgitation. There is moderate mitral valve stenosis. Mean gradient across the mitral valve 6 mm Hg at 76/Min. Pulmonic Valve The pulmonic valve is likely normal. Tricuspid Valve There is trace tricuspid valve regurgitation. There is no evidence of pulmonary hypertension. Great Vessels There is mild dilatation of the ascending aorta measuring 4.00 cm. Venous The inferior vena cava is mildly dilated and collapses greater than 50% with inspiration. Pericardium/Pleural There is no evidence of pericardial effusion. Prior Study Comparison No prior study available for comparison. Measurements 2D Linear Measurements IVSd: 1.27 0.6-0.9/0.6-1.0 cm LVIDd: 5.29 3.9-5.3/4.2-5.9 cm LVIDd Index: 2.51 2.4-3.2/2.2-3.1 cm/m2 LVIDs: 4.45 2.0-3.6 cm LVPWd: 1.24 0.7-1.1 cm LA Diam: 4.60 2.7-3.8/3.0-4.0 cm LAIDs Index: 2.18 1.5-2.3 cm/m2 LV Mass: 339.58 67-162/88-224 g LV Mass Index: 160.94 43-95/49-115 g/m2 LVOT Diam: 2.10 3.0+(-)1.3 cm 2D Systolic Function EF 4C: 50.30 >55% EF 2C: 58.20 >55% EF BiP: 52.00 >55% Mitral Valve MV VTI: 0.40 MV Pk Dawson: 1.54 MV Mn Dawson: 1.06 MV Pk Grad: 9.00 MV Mn Grad: 5.00 MV Pk E: 1.03 MV PK A: 1.44 MV Decel Time: 535.00 E/A: 0.70 E'Lateral: 5.17 E'Medial: 3.68 E/E' Med: 28.00 E/E' Lat: 19.90 PHT: 157.00 MVA PHT: 1.40 MVA Continuity: 2.17 Decel Hodgeman: 1.92 Aortic Valve AoV Pk Dawson: 1.41 AoV Mn Dawson: 1.01 AoV VTI: 0.30 AoV Pk Grad: 8.00 Aov Mn Grad: 5.00 JAY Cont.VTI: 2.87 LVOT LVOT Pk Dawson: 1.07 LVOT Mn Dawson: 0.76 LVOT VTI: 0.25 LVOT Pk Grad: 5.00 LVOT Mn Grad: 3.00 LVOT Diam: 2.10 LVOT Area: 3.46 Diastolic Function MV Pk E: 1.03 MV Pk A: 1.44 E/A: 0.70 E'Medial: 3.68 E/E' Med: 28.00 E' Laterial: 5.17 E/E' Lat: 19.90 Right Ventricle TAPSE (mm): 15.80 TVS' Dawson: 9.73 Tricuspid Valve RA Press: 8.00 Great Vessels Aorta Sinus of Valsalva: 2.90 2.0-3.5 cm Ao Asc: 4.00 2.1-3.4 cm Pulmonary Valve PV Pk Dawson: 0.91 Peak PV Grad: 3.00 Updated in Other Vendor System with Status of Final Julio Toledo MD electronically signed on 05/27/2022 4:39:15 PM with status of Final
== END ==
LOC: HO.CARD 13:27
PROVIDERS: PCP Nurse Practitioner; Visit Provider Internal Medicine
DX: I35.0 Nonrheumatic aortic (valve) stenosis (principal)
CPT/HCPCS: 93306; Q9957

== ENCOUNTER 2022-06-06 10:07 | Outpatient (REF) | payer OTHER, SELFPAY ==
[2022-06-06 08:30] LABS: MANUAL DIFF FLAG NO
[2022-06-06 08:35] LABS: Eosinophils Absolute Auto 0.1 X10*3/uL (0.0-0.4); Eosinophils Percent Auto 2.7 % (0-4); Hematocrit 34.3 % (42.0-52.0); Hemoglobin 10.4 g/dl (14.0-18.0); Imm Gran Abs Auto 0.03 X10*3/uL (0.00-0.03); Imm Gran Pct Auto 0.7 % (0.0-0.4); Lymphocytes Absolute Auto 1.1 X10*3/uL (1.2-4.9); Lymphocytes Percent Auto 26.7 % (20-40); Mean Corpuscular HGB Conc 30.3 g/dl (31.0-36.0); Mean Corpuscular Hemoglobin 27.9 pg (27.0-33.0); Mean Platelet Volume 12.1 fL (9.4-12.4); Monocytes Absolute Auto 0.5 X10*3/uL (0.1-1.2); Monocytes Percent Auto 13.2 % (2-11); Neutrophils Absolute Auto 2.3 x10*3/uL (2.0-8.3); Neutrophils Percent Auto 55.7 % (45-73); Platelet Count 119 X10*3/uL (160-400); Red Blood Count 3.73 X10*6/uL (4.60-5.80); Red Cell Distribution Width 17.6 % (11.0-16.0); White Blood Count 4.1 X10*3/uL (4.8-10.8)
[2022-06-06 09:08] LABS: Anion Gap 11 (12-20); Blood Urea Nitrogen 12 mg/dL (9-16); Calcium 8.6 mg/dL (8.4-10.2); Carbon Dioxide 28 mmol/L (22-29); Chloride 103 mmol/L (96-108); Estimated Glomerular Filt Rate > 60; Glucose Random 164 mg/dL (60-115); Potassium 4.1 mmol/L (3.3-5.1); Sodium 138 mmol/L (135-145)
== END 2022-06-06 10:08 | disposition home or self-care (01) ==
LOC: HO.HSH3W 10:07
PROVIDERS: Visit Provider Nurse Practitioner
DX: D64.9 Anemia, unspecified (principal); Z95.2 Presence of prosthetic heart valve
CPT/HCPCS: 36415; 80048; 85025

== ENCOUNTER 2022-06-10 06:11 | Outpatient (REF) | payer OTHER, SELFPAY ==
[2022-06-10 06:17] LABS: MANUAL DIFF FLAG NO
[2022-06-10 06:57] LABS: Basophils Absolute Auto 0.1 X10*3/uL (0.0-0.2); Basophils Percent Auto 1.2 % (0-2); Eosinophils Absolute Auto 0.1 X10*3/uL (0.0-0.4); Eosinophils Percent Auto 2.4 % (0-4); Hematocrit 34.1 % (42.0-52.0); Hemoglobin 10.4 g/dl (14.0-18.0); Imm Gran Abs Auto 0.01 X10*3/uL (0.00-0.03); Imm Gran Pct Auto 0.2 % (0.0-0.4); Lymphocytes Percent Auto 23.9 % (20-40); Mean Corpuscular HGB Conc 30.5 g/dl (31.0-36.0); Mean Corpuscular Hemoglobin 28.2 pg (27.0-33.0); Mean Corpuscular Volume 92.4 fL (80.0-98.0); Mean Platelet Volume 11.2 fL (9.4-12.4); Monocytes Absolute Auto 0.5 X10*3/uL (0.1-1.2); Neutrophils Absolute Auto 2.5 x10*3/uL (2.0-8.3); Neutrophils Percent Auto 59.3 % (45-73); Platelet Count 111 X10*3/uL (160-400); Red Blood Count 3.69 X10*6/uL (4.60-5.80); Red Cell Distribution Width 17.6 % (11.0-16.0); White Blood Count 4.2 X10*3/uL (4.8-10.8)
[2022-06-10 07:09] LABS: Ammonia 41 umol/L (13-55)
[2022-06-10 07:37] LABS: Alanine Aminotransferase 10 U/L (0-40); Albumin Level 3.4 g/dL (3.5-5.0); Alkaline Phosphatase 44 U/L (39-117); Aspartate Amino Transferase 13 U/L (5-37); Bilirubin Direct 0.2 mg/dL (0.0-0.5); Bilirubin Total 0.5 mg/dL (0.0-1.0); Total Protein 5.8 g/dL (6.5-8.0)
== END 2022-06-10 06:12 | disposition home or self-care (01) ==
LOC: HO.HSH3W 06:11
PROVIDERS: Visit Provider Nurse Practitioner Acute Care
DX: D64.9 Anemia, unspecified (principal); K74.60 Unspecified cirrhosis of liver
CPT/HCPCS: 36415; 80076; 82140; 85025

== ENCOUNTER 2022-06-20 06:43 | Outpatient (REF) | payer OTHER, SELFPAY ==
[2022-06-20 08:32] LABS: MANUAL DIFF FLAG NO
[2022-06-20 08:34] LABS: Basophils Percent Auto 0.7 % (0-2); Eosinophils Absolute Auto 0.1 X10*3/uL (0.0-0.4); Eosinophils Percent Auto 2.2 % (0-4); Hematocrit 37.4 % (42.0-52.0); Hemoglobin 11.5 g/dl (14.0-18.0); Imm Gran Abs Auto 0.01 X10*3/uL (0.00-0.03); Imm Gran Pct Auto 0.2 % (0.0-0.4); Lymphocytes Absolute Auto 1.1 X10*3/uL (1.2-4.9); Lymphocytes Percent Auto 23.9 % (20-40); Mean Corpuscular HGB Conc 30.7 g/dl (31.0-36.0); Mean Corpuscular Hemoglobin 28.8 pg (27.0-33.0); Mean Corpuscular Volume 93.5 fL (80.0-98.0); Mean Platelet Volume 12.1 fL (9.4-12.4); Monocytes Absolute Auto 0.6 X10*3/uL (0.1-1.2); Monocytes Percent Auto 12.8 % (2-11); Neutrophils Absolute Auto 2.7 x10*3/uL (2.0-8.3); Neutrophils Percent Auto 60.2 % (45-73); Platelet Count 109 X10*3/uL (160-400); Red Cell Distribution Width 17.4 % (11.0-16.0); White Blood Count 4.5 X10*3/uL (4.8-10.8)
[2022-06-20 09:06] LABS: Anion Gap 11 (12-20); Blood Urea Nitrogen 14 mg/dL (9-16); Carbon Dioxide 29 mmol/L (22-29); Chloride 102 mmol/L (96-108); Estimated Glomerular Filt Rate > 60; Iron 55 mcg/dL (45-160); Percent Iron Saturation 16 % (15-50); Potassium 4.4 mmol/L (3.3-5.1); Sodium 138 mmol/L (135-145); Total Iron Binding Capacity 342 mcg/dL (228-428); Unsaturated Iron Binding 287 ug/dL
[2022-06-20 09:35] LABS: Ferritin 25 ng/mL (20-250); Folate 16.1 ng/mL (> or = 4.0); Vitamin B12 520 pg/mL (200-900)
[2022-06-20 12:44] LABS: Ammonia 50 umol/L (13-55)
== END 2022-06-20 06:44 | disposition home or self-care (01) ==
LOC: HO.HSH3W 06:43
PROVIDERS: Absent Provider Nurse Practitioner Acute Care; Visit Provider Internal Medicine Medical Oncology
DX: K74.60 Unspecified cirrhosis of liver (principal); D64.9 Anemia, unspecified
CPT/HCPCS: 36415; 80051; 82140; 82565; 82607; 82728; 82746; 83540; 84520; 85025

== ENCOUNTER 2022-06-26 06:13 | Outpatient (REF) | payer OTHER, SELFPAY ==
[2022-06-26 07:28] LABS: Ammonia 34 umol/L (13-55)
== END 2022-06-26 06:14 | disposition home or self-care (01) ==
LOC: HO.HSH3W 06:13
PROVIDERS: Visit Provider Nurse Practitioner Acute Care
DX: K74.60 Unspecified cirrhosis of liver (principal)
CPT/HCPCS: 36415; 82140

== ENCOUNTER 2022-07-03 05:51 | Outpatient (REF) | payer OTHER, SELFPAY ==
[2022-07-03 07:43] LABS: Estimated Average Glucose 154 mg/dL
== END 2022-07-03 05:52 | disposition home or self-care (01) ==
LOC: HO.HSH3W 05:51
PROVIDERS: Visit Provider Nurse Practitioner
DX: E11.9 Type 2 diabetes mellitus without complications (principal)
CPT/HCPCS: 36415; 83036

== ENCOUNTER 2022-10-10 05:59 | Outpatient (REF) | payer MEDICARE, OTHER, SELFPAY ==
[2022-10-10 06:02] LABS: MANUAL DIFF FLAG NO
[2022-10-10 06:14] LABS: Basophils Percent Auto 0.6 % (0-2); Eosinophils Absolute Auto 0.1 X10*3/uL (0.0-0.4); Eosinophils Percent Auto 2.5 % (0-4); Hematocrit 39.8 % (42.0-52.0); Hemoglobin 13.3 g/dl (14.0-18.0); Imm Gran Abs Auto 0.02 X10*3/uL (0.00-0.03); Imm Gran Pct Auto 0.4 % (0.0-0.4); Lymphocytes Absolute Auto 0.9 X10*3/uL (1.2-4.9); Lymphocytes Percent Auto 16.6 % (20-40); Mean Corpuscular HGB Conc 33.4 g/dl (31.0-36.0); Mean Corpuscular Hemoglobin 33.2 pg (27.0-33.0); Mean Corpuscular Volume 99.3 fL (80.0-98.0); Monocytes Absolute Auto 0.7 X10*3/uL (0.1-1.2); Monocytes Percent Auto 13.4 % (2-11); Neutrophils Absolute Auto 3.5 x10*3/uL (2.0-8.3); Neutrophils Percent Auto 66.5 % (45-73); Platelet Count 106 X10*3/uL (160-400); Red Blood Count 4.01 X10*6/uL (4.60-5.80); White Blood Count 5.3 X10*3/uL (4.8-10.8)
[2022-10-10 06:21] LABS: Ammonia 38 umol/L (13-55)
[2022-10-10 06:28] LABS: Estimated Average Glucose 183 mg/dL
[2022-10-10 07:00] LABS: Alanine Aminotransferase 10 U/L (0-40); Albumin Level 3.4 g/dL (3.5-5.0); Alkaline Phosphatase 43 U/L (39-117); Anion Gap 11 (12-20); Aspartate Amino Transferase 13 U/L (5-37); Bilirubin Total 0.6 mg/dL (0.0-1.0); Blood Urea Nitrogen 15 mg/dL (9-16); Calcium 9.2 mg/dL (8.4-10.2); Carbon Dioxide 25 mmol/L (22-29); Chloride 102 mmol/L (96-108); Estimated Glomerular Filt Rate > 60; Glucose Fasting 253 mg/dL (60-99); Potassium 4.2 mmol/L (3.3-5.1); Sodium 134 mmol/L (135-145); Total Protein 6.2 g/dL (6.5-8.0)
== END 2022-10-10 06:00 | disposition home or self-care (01) ==
LOC: HO.HSH3W 05:59
PROVIDERS: Visit Provider Nurse Practitioner
DX: E11.39 Type 2 diabetes mellitus with other diabetic ophthalmic complication (principal); D63.8 Anemia in other chronic diseases classified elsewhere; F10.21 Alcohol dependence, in remission
CPT/HCPCS: 36415; 80053; 82140; 83036; 85025

== ENCOUNTER 2023-01-13 06:41 | Outpatient (REF) | payer MEDICARE, OTHER, SELFPAY ==
[2023-01-13 06:44] LABS: MANUAL DIFF FLAG NO
[2023-01-13 07:11] LABS: Basophils Percent Auto 0.8 % (0-2); Eosinophils Absolute Auto 0.1 X10*3/uL (0.0-0.4); Eosinophils Percent Auto 2.8 % (0-4); Hematocrit 41.3 % (42.0-52.0); Hemoglobin 14.1 g/dl (14.0-18.0); Imm Gran Abs Auto 0.03 X10*3/uL (0.00-0.03); Imm Gran Pct Auto 0.6 % (0.0-0.4); Lymphocytes Absolute Auto 1.3 X10*3/uL (1.2-4.9); Lymphocytes Percent Auto 25.8 % (20-40); Mean Corpuscular HGB Conc 34.1 g/dl (31.0-36.0); Mean Corpuscular Hemoglobin 33.7 pg (27.0-33.0); Mean Corpuscular Volume 98.8 fL (80.0-98.0); Mean Platelet Volume 12.3 fL (9.4-12.4); Monocytes Absolute Auto 0.6 X10*3/uL (0.1-1.2); Monocytes Percent Auto 12.9 % (2-11); Neutrophils Absolute Auto 2.8 x10*3/uL (2.0-8.3); Neutrophils Percent Auto 57.1 % (45-73); Platelet Count 118 X10*3/uL (160-400); Red Blood Count 4.18 X10*6/uL (4.60-5.80); Red Cell Distribution Width 12.1 % (11.0-16.0)
[2023-01-13 07:56] LABS: Alanine Aminotransferase 14 U/L (0-40); Albumin Level 3.6 g/dL (3.5-5.0); Alkaline Phosphatase 43 U/L (39-117); Anion Gap 12 (12-20); Aspartate Amino Transferase 14 U/L (5-37); Bilirubin Total 0.6 mg/dL (0.0-1.0); Blood Urea Nitrogen 14 mg/dL (9-16); Carbon Dioxide 28 mmol/L (22-29); Chloride 101 mmol/L (96-108); Estimated Glomerular Filt Rate > 60; Glucose Fasting 216 mg/dL (60-99); Potassium 4.2 mmol/L (3.3-5.1); Sodium 137 mmol/L (135-145); Total Protein 6.6 g/dL (6.5-8.0)
[2023-01-13 08:26] LABS: Estimated Average Glucose 189 mg/dL; Hemoglobin A1c % 8.2 % (<6.0)
== END 2023-01-13 06:42 | disposition home or self-care (01) ==
LOC: HO.HSH3W 06:41
PROVIDERS: Visit Provider Nurse Practitioner
DX: E11.9 Type 2 diabetes mellitus without complications (principal)
CPT/HCPCS: 36415; 80053; 83036; 85025

== ENCOUNTER 2023-04-02 05:05 | Outpatient (REF) | payer MEDICARE, SELFPAY ==
[2023-04-02 06:36] LABS: Prothrombin Time 12.5 SEC (11.1-13.3)
== END 2023-04-02 05:06 | disposition home or self-care (01) ==
LOC: HO.HSH3W 05:05
PROVIDERS: Visit Provider Internal Medicine Interventional Cardiology
DX: K74.60 Unspecified cirrhosis of liver (principal); Z79.01 Long term (current) use of anticoagulants
CPT/HCPCS: 36415; 85610

== ENCOUNTER 2023-04-23 08:46 | Emergency (ER) | payer MEDICARE, SELFPAY ==
[2023-04-23 08:53] VITALS: BP 136/90; PULSE 91; O2SAT 94
--- NOTE | 2023-04-23 08:58 | ED_ITS ---
HPI - General Adult General Chief complaint: Allergic Reaction Stated complaint: ALLERGIC RXN FROM [facility] PER EMS Time Seen by Provider: 04/23/23 08:58 Source: patient and EMS Mode of arrival: EMS Limitations: no limitations History of Present Illness HPI narrative: Patient is a 78 year old assigned male at with a history of CHF presenting to the emergency department today with a rash after taking Amoxicillin. Patient states that he was given 2 grams of amoxicillin before a dental procedure this morning and then broke out in a rash. Patient states that he was given Benadryl and the rash is no longer bothering him. Patient denies any dizziness, lightheadedness, abdominal pain, nausea, vomiting, fever, chills, blurry vision, double vision, loss of vision, chest pain, difficulty breathing, shortness of breath, back pain, night sweats, pain with urination, increased urinary frequency, increased urinary urgency, blood in his urine or stool, syncope or a near syncopal episode, recent trauma or falls, bowel incontinence, bladder incontinence, bowel retention, bladder retention, or any other complaints at this time. Onset (ago): minute(s) Location: left, right and upper extremity Severity: mild Severity scale (1-10): 3 Relieving factors: none Exacerbating factors: none Associated symptoms: rash Treatments prior to arrival: none Related Data Home Medications Medication Instructions Recorded Confirmed acetaminophen 650 mg tablet 650 mg PO Q4H PRN Pain 04/18/22 04/18/22 aspirin 81 mg tablet,delayed 81 mg PO DAILY 04/18/22 04/18/22 release bisacodyl 10 mg rectal suppository 10 mg WY DAILY PRN Constipation 04/18/22 04/18/22 cholecalciferol (vitamin D3) 50 50 mcg PO DAILY 04/18/22 04/18/22 mcg (2,000 unit) capsule cyanocobalamin (vitamin B-12) 1,000 mcg PO DAILY 04/18/22 04/18/22 1,000 mcg tablet dextromethorphan-guaifenesin 10 10 ml PO Q4-6H PRN Cough 04/18/22 04/18/22 mg-100 mg/5 mL oral syrup ferrous sulfate 325 mg (65 mg 325 mg PO BID 04/18/22 04/18/22 iron) tablet furosemide 20 mg tablet 20 mg PO Q OTHER DAY 04/18/22 04/18/22 furosemide 40 mg tablet 40 mg PO Q OTHER DAY 04/18/22 04/18/22 insulin glargine 100 unit/mL 30 unit subcut BEDTIME 04/18/22 04/18/22 subcutaneous solution insulin lispro 100 unit/mL 4 - 16 unit subcut BID 04/18/22 04/18/22 subcutaneous solution lactulose 10 gram/15 mL oral 10 g PO BID 04/18/22 04/18/22 solution loratadine 10 mg tablet 10 mg PO DAILY PRN Allergic 04/18/22 04/18/22 Reaction melatonin 3 mg tablet 3 mg PO BEDTIME PRN Insomnia 04/18/22 04/18/22 sodium phosphates 19 gram-7 118 ml WY DAILY PRN Constipation 04/18/22 04/18/22 gram/118 mL enema (Fleet Enema) spironolactone 25 mg tablet 25 mg PO DAILY 04/18/22 04/18/22 terbinafine HCl 1 % topical cream 1 appl topical BID 04/18/22 04/18/22 Allergies Allergy/AdvReac Type Severity Reaction Status Date / Time No Known Allergies Allergy Mild NONE Unverified 12/09/19 17:36 Review of Systems Constitutional: Constitutional: Reports no additional constitutional complaints, Denies chills, Denies fever(s) and Denies night sweats Eyes: Eyes: Reports no additional eye complaints, Denies blurry vision, Denies change in vision, Denies diplopia, Denies eye discharge, Denies loss of vision and Denies eye pain ENT: Denies dizziness Cardiovascular: Cardiovascular: Reports no additional cardiovascular complaints, Denies chest pain, Denies lightheadedness, Denies Loss of Consciousness and Denies dyspnea Respiratory: Respiratory: Reports no additional respiratory complaints and Denies dyspnea Gastrointestinal: Gastrointestinal: Reports no additional gastrointestinal complaints, Denies abdominal pain, Denies melena, Denies hematochezia, Denies change in bowel habits and Denies change in stool character Genitourinary: Genitourinary: Reports no additional male genitourinary complaints, Denies hematuria, Denies oliguria, Denies difficulty urinating, Denies dysuria, Denies urinary frequency, Denies urinary hesitancy, Denies urinary incontinence and Denies urinary urgency Musculoskeletal: Musculoskeletal: Reports no additional musculoskeletal complaints, Denies numbness and Denies tingling Integumentary/Breasts: Comments: rash to bilateral arms Neurologic: Denies dizziness, Denies loss of vision, Denies numbness and Denies tingling Psychiatric: Psychiatric: Reports no additional psychiatric complaints Endocrine: Endocrine: Reports no additional endocrine complaints Hematologic/Lymphatic: Hematologic/Lymphatic: Reports no additional hematologic/lymphatic complaints Allergic/Immunologic: Allergic/Immunologic: Reports no additional allergic/immunologic complaints PMFSH Past Medical History Attestation statement: The following information was validated with the patient. Source: old records reviewed and nursing notes reviewed Medical History Neuropathy Anemia, unspecified CKD stage 3 due to type 2 diabetes mellitus GERD (gastroesophageal reflux disease) Hypertension Diabetes Surgical History History of bilateral knee replacement Family History Family History Mother No problems noted. Father No problems noted. Social History Social History Household Members: Other Household Members Other:: resident of [place] Housing: Retirement Alcohol intake: current Alcohol intake frequency: a few times a week Alcohol type: hard liquor Patient Tobacco Use Status: Former Tobacco user Quit Date: 30 years ago Advance Directives: Yes Advance Directives on File: Yes Advance Directives Date on File: 04/23/23 service: Yes Current occupational status: retired Physical Exam ED Vital Signs: Vital Signs - 24 hr 04/23/23 09:04 04/23/23 10:35 Temperature 97.7 F 98.4 F Pulse Rate 81 77 Respiratory Rate 14 19 Blood Pressure 143/66 H 131/59 L Pulse Oximetry 94 95 Oxygen Delivery Method Room Air Room Air BMI result Body Mass Index 33.7 Const General: cooperative, no acute distress, alert and awake Nutritional Appearance: well nourished Orientation/consciousness: patient oriented x3 Limitations: no limitations HENMT Head: Yes normal to inspection and Yes atraumatic Ears: hearing grossly normal bilaterally and external ears normal General nose exam: Normal external nose present, no nasal discharge noted and no epistaxis Face and sinus: Yes normal facial exam, No abrasion and No laceration Mouth: Normal oral and palatal mucosa present, no drooling and no muffled voice Eyes General: appearance normal, both eyes and all related structures Periorbital: periorbital findings normal Eyelids: Yes eyelids normal Conjunctivae: conjunctivae normal Pupils: Equal, round and reactive pupils present EOM: EOMs intact bilaterally Neck Neck: Yes normal visual inspection, Yes full ROM and Yes no lymphadenopathy Chest Chest palpation & inspection: normal inspection of the chest Resp Effort & Inspection: normal respiratory effort and able to speak in complete sentences GI Inspection: Yes normal to inspection Skin Other: bilateral upper extremity dermatitis Neuro General: patient oriented x3 and moves all extremities Cranial nerves: Yes Equal, round and reactive pupils present Cognition (Neuro): normal cognition Motor exam (neuro): 5/5 motor strength present throughout Sensory Exam: Normal double simultaneous stimulation for sensation Coordination: [id number] test normal Extrem General: Yes normal to inspection, Yes full ROM and Yes capillary refill normal Psych Appearance: grossly normal Mental Status: mental status grossly normal Affect: normal affect Attitude: cooperative Thought process: Normal thought process present Thought content: Normal thought content present Insight: Good insight present (Psych) Medical Decision Making Medical Decision Making MDM Narrative: Patient is a 78 year old assigned male at with a history of CHF presenting to the emergency department today with a rash after Amoxicillin ingestion. Patient's physical exam was as noted in the physical exam portion of this note. Patient's rash is most consistent with a medication reaction. I explained my physical exam findings to the patient. I answered all questions asked by the patient. Patient was monitored for an additional 1 hour and continued to not have any complaints or worsening reaction. I stressed the importance of the patient taking his medication as prescribed. I stressed the importance of the patient following up with his primary care provider. I stressed the importance of the patient returning to the emergency department immediately if his symptoms were to worsen or if he were to develop any dizziness, shortness of breath, difficulty breathing, chest pain, blurry vision, loss of vision, nausea, vomiting, abdominal pain, fever, chills, back pain, or any other complaints. Patient verbalized agreement and understanding with this treatment plan and discharge. Differential Diagnosis Differential Diagnoses: The differential diagnosis associated with the presentation includes Medication reaction Allergic reaction to medication Medication rash Admission/Observation Consideration of admission/observation: Escalation of care including admission/observation considered Patient would have been admitted to the hospital had his work up had any findings where hospital admission was appropriate and his clinical presentation warranted hospital admission. Independent Historian Clinical information obtained from an independent historian. History obtained from or confirmed by: EMS (EMS provided additional history and confirmed the history provided by the patient.) Discharge Plan Discharge Clinical Impression: Medication reaction Patient Disposition: Home, Self-Care Instructions: Antibiotic Medication Allergy (ED) Additional Instructions: DO NOT TAKE AMOXICILLIN OR ANY AMOXICILLIN CONTAINING PRODUCTS. CONSIDER YOURSELF ALLERGIC TO THOSE PRODUCTS. Follow up with your primary care provider. Return to the emergency department immediately if your symptoms worsen or if you develop any dizziness, shortness of breath, difficulty breathing, chest pain, blurry vision, loss of vision, nausea, vomiting, abdominal pain, fever, chills, back pain, or any other complaints. Prescriptions: No Action furosemide 40 mg Tablet 40 mg PO Q OTHER DAY terbinafine HCl 1 % Cream 1 appl TOPICAL BID insulin glargine 100 unit/mL Solution 30 unit SUBCUT BEDTIME cyanocobalamin (vitamin B-12) 1,000 mcg Tablet 1,000 mcg PO DAILY melatonin 3 mg Tablet 3 mg PO BEDTIME PRN (Reason: Insomnia) dextromethorphan-guaifenesin 10-100 mg/5 mL Syrup 10 ml PO Q4-6H PRN (Reason: Cough) aspirin 81 mg Tablet,Delayed Release (Dr/Ec) 81 mg PO DAILY acetaminophen 650 mg Tablet 650 mg PO Q4H PRN (Reason: Pain) spironolactone 25 mg Tablet 25 mg PO DAILY bisacodyl 10 mg Suppository 10 mg WY DAILY PRN (Reason: Constipation) ferrous sulfate 325 mg (65 mg iron) Tablet 325 mg PO BID Fleet Enema 19-7 gram/118 mL Enema 118 ml WY DAILY PRN (Reason: Constipation) furosemide 20 mg Tablet 20 mg PO Q OTHER DAY insulin lispro 100 unit/mL Solution 4 - 16 unit SUBCUT BID Rx Instructions: SLIDING SCALE loratadine 10 mg Tablet 10 mg PO DAILY PRN (Reason: Allergic Reaction) lactulose 10 gram/15 mL Solution 10 g PO BID cholecalciferol (vitamin D3) 50 mcg (2,000 unit) Capsule 50 mcg PO DAILY Referrals: Farrah Tipton NP [Primary Care Provider] - Print Language: Japanese
[2023-04-23 09:04] VITALS: BP 143/66; PULSE 81; RESP 14; TEMP 36.5; O2SAT 94; BMI 33.7
[2023-04-23 10:35] VITALS: BP 131/59; PULSE 77; RESP 19; TEMP 36.9; O2SAT 95
[2023-04-23 11:00] VITALS: BP 135/57; PULSE 80; RESP 20; TEMP 36.5; O2SAT 95
== END 2023-04-23 16:03 ==
PROVIDERS: Emergency Provider Emergency Medicine Emergency Medical Services; PCP Nurse Practitioner
DX: R21 Rash and other nonspecific skin eruption (principal); T36.0X5A Adverse effect of penicillins, initial encounter; Y92.9 Unspecified place or not applicable
CPT/HCPCS: 99282; 99284

== ENCOUNTER 2023-06-04 07:01 | Outpatient (REF) | payer OTHER, SELFPAY ==
[2023-06-04 07:26] LABS: Ammonia 47 umol/L (13-55)
[2023-06-04 07:33] LABS: Hematocrit 38.5 % (42.0-52.0); Hemoglobin 13.9 g/dl (14.0-18.0); Mean Corpuscular HGB Conc 36.1 g/dl (31.0-36.0); Mean Corpuscular Hemoglobin 33.7 pg (27.0-33.0); Mean Corpuscular Volume 93.2 fL (80.0-98.0); Mean Platelet Volume 11.6 fL (9.4-12.4); PLT CLUMP 1; Red Blood Count 4.13 X10*6/uL (4.60-5.80); Red Cell Distribution Width 12.2 % (11.0-16.0)
[2023-06-04 07:34] LABS: Estimated Average Glucose 189 mg/dL; Hemoglobin A1c % 8.2 % (<6.0); White Blood Count 5.3 X10*3/uL (4.8-10.8)
[2023-06-04 07:38] LABS: Alanine Aminotransferase 11 U/L (0-40); Albumin Level 3.4 g/dL (3.5-5.0); Alkaline Phosphatase 43 U/L (39-117); Anion Gap 11 (12-20); Aspartate Amino Transferase 12 U/L (5-37); Bilirubin Direct 0.2 mg/dL (0.0-0.5); Bilirubin Total 0.6 mg/dL (0.0-1.0); Blood Urea Nitrogen 17 mg/dL (9-16); Calcium 10.1 mg/dL (8.4-10.2); Carbon Dioxide 27 mmol/L (22-29); Chloride 102 mmol/L (96-108); Estimated Glomerular Filt Rate > 60; Glucose Fasting 229 mg/dL (60-99); Potassium 3.7 mmol/L (3.3-5.1); Sodium 136 mmol/L (135-145); Total Protein 6.2 g/dL (6.5-8.0)
[2023-06-04 08:39] LABS: Platelet Count 97 X10*3/uL (160-400)
== END 2023-06-04 07:02 | disposition home or self-care (01) ==
LOC: HO.HSH3W 07:01
PROVIDERS: Visit Provider Nurse Practitioner
DX: K74.60 Unspecified cirrhosis of liver (principal); E11.9 Type 2 diabetes mellitus without complications
CPT/HCPCS: 36415; 80048; 80076; 82140; 83036; 85027

== ENCOUNTER 2024-02-09 12:19 | Outpatient (REF) | payer OTHER, SELFPAY ==
[2024-02-09 12:55] LABS: Estimated Average Glucose 200 mg/dL; Hemoglobin A1C 265.4953 umol/L; Hemoglobin A1c % 8.6 % (<6.0); Total Hemoglobin (HGBA1C) 3744.1784 umol/L
[2024-02-09 13:02] LABS: Alanine Aminotransferase 17 U/L (0-40); Albumin Level 3.7 g/dL (3.5-5.0); Alkaline Phosphatase 47 U/L (39-117); Anion Gap 11 (12-20); Aspartate Amino Transferase 19 U/L (5-37); Bilirubin Total 0.7 mg/dL (0.0-1.0); Blood Urea Nitrogen 21 mg/dL (9-16); Calcium 9.4 mg/dL (8.4-10.2); Carbon Dioxide 26 mmol/L (22-29); Chloride 103 mmol/L (96-108); Estimated Glomerular Filt Rate 58; Glucose Random 284 mg/dL (60-115); Potassium 3.6 mmol/L (3.3-5.1); Sodium 136 mmol/L (135-145); Total Protein 6.5 g/dL (6.5-8.0)
== END 2024-02-09 12:20 | disposition home or self-care (01) ==
LOC: HO.HSH3W 12:19
PROVIDERS: Visit Provider Nurse Practitioner
DX: E11.9 Type 2 diabetes mellitus without complications (principal); I50.9 Heart failure, unspecified; N28.9 Disorder of kidney and ureter, unspecified
CPT/HCPCS: 36415; 80053; 83036

== ENCOUNTER 2024-03-10 05:52 | Outpatient (REF) | payer OTHER, SELFPAY ==
[2024-03-10 05:56] LABS: MANUAL DIFF FLAG NO
[2024-03-10 06:05] LABS: Basophils Percent Auto 0.5 % (0-2); Eosinophils Absolute Auto 0.1 X10*3/uL (0.0-0.4); Eosinophils Percent Auto 2.4 % (0-4); Hematocrit 39.8 % (42.0-52.0); Hemoglobin 13.9 g/dl (14.0-18.0); Imm Gran Abs Auto 0.03 X10*3/uL (0.00-0.03); Imm Gran Pct Auto 0.5 % (0.0-0.4); Lymphocytes Absolute Auto 1.5 X10*3/uL (1.2-4.9); Lymphocytes Percent Auto 25.1 % (20-40); Mean Corpuscular HGB Conc 34.9 g/dl (31.0-36.0); Mean Corpuscular Hemoglobin 33.5 pg (27.0-33.0); Mean Corpuscular Volume 95.9 fL (80.0-98.0); Mean Platelet Volume 11.6 fL (9.4-12.4); Monocytes Absolute Auto 0.7 X10*3/uL (0.1-1.2); Monocytes Percent Auto 11.6 % (2-11); Neutrophils Absolute Auto 3.5 x10*3/uL (2.0-8.3); Neutrophils Percent Auto 59.9 % (45-73); Platelet Count 120 X10*3/uL (160-400); Red Blood Count 4.15 X10*6/uL (4.60-5.80); Red Cell Distribution Width 12.1 % (11.0-16.0); White Blood Count 5.9 X10*3/uL (4.8-10.8)
[2024-03-10 06:18] LABS: Ammonia 39 umol/L (13-55)
[2024-03-10 06:28] LABS: Alanine Aminotransferase 18 U/L (0-40); Albumin Level 3.5 g/dL (3.5-5.0); Alkaline Phosphatase 36 U/L (39-117); Aspartate Amino Transferase 16 U/L (5-37); Bilirubin Direct 0.3 mg/dL (0.0-0.5); Bilirubin Total 0.7 mg/dL (0.0-1.0); Iron 97 mcg/dL (45-160); Percent Iron Saturation 32 % (15-50); Total Iron Binding Capacity 299 mcg/dL (228-428); Total Protein 6.3 g/dL (6.5-8.0); Unsaturated Iron Binding 202 ug/dL
[2024-03-10 06:41] LABS: Ferritin 190 ng/mL (20-250); Thyroid Stimulating Hormone 3.96 uIU/mL (0.32-4.0)
[2024-03-10 06:56] LABS: Folate 16.8 ng/mL (> or = 4.0); Vitamin B12 599 pg/mL (200-900)
== END 2024-03-10 05:53 | disposition home or self-care (01) ==
LOC: HO.HSH3W 05:52
PROVIDERS: Visit Provider Nurse Practitioner
DX: K74.60 Unspecified cirrhosis of liver (principal); D64.9 Anemia, unspecified; D52.9 Folate deficiency anemia, unspecified
CPT/HCPCS: 36415; 80076; 82140; 82607; 82728; 82746; 83540; 84443; 85025

== ENCOUNTER 2024-05-27 08:46 | Outpatient (REF) | payer OTHER, SELFPAY ==
[2024-05-27 09:17] LABS: Estimated Average Glucose 177 mg/dL; Hemoglobin A1c % 7.8 % (<6.0)
--- OUTSIDE RECORDS SUMMARY | 2024-05-27 09:26 | XMS_ITS | Encounter Summary ---
Author Organization [employer] Address [address] [place] [address] Care Team Providers Care Security Ambassador Name Role Phone Unavailable Primary Care Provider Unavailabl e Encounter Details Date Type Department Care Team (Latest Contact Info) Description 10/25/2020 Abstract [facility] Dental, Provider, DDS Social History Tobacco Use Types Packs/Day Years Used Date Smoking Tobacco: Never Assessed Sex and Gender Information Value Date Recorded Sex Assigned at Male 01/21/2022 10:38 AM EDT Legal Sex Male 10:38 AM EDT Gender Identity Male 01/21/2022 10:38 AM EDT Sexual Orientation Straight 01/21/2022 10 :38 AM EDT documented as of this encounter Plan of Treatment Upcoming Encounters Date Type Department Care Team (Late st Contact Info) Description 06/09/2024 1:00 PM EDT Office Visit [facility] [address] [place] [address] Tori Wilcox [address] [place] [address] documented as of this encounter Visit Diagnoses Not on filedocumented in this encounter
--- OUTSIDE RECORDS SUMMARY | 2024-05-27 09:26 | XMS_ITS | Clinical Summary ---
Author Organization [employer] [facility] Address [address] [place] [address] Care Team Providers Care Services Executive Name Role Phone Unavailable Primary Care Provider Unavailabl e Allergies Active Allergy Reactions Criticality Noted Date Comments Amoxicillin 06/05/2023 Medications acetaminophen (Tylenol) 325 MG tablet Take 1 tablet by mouth every 4 (four) hours. Active aluminum-magnesium hydroxide 200-200 MG/5ML suspension Ac tive bisacodyl (Dulcolax) 10 MG suppository Insert 1 suppository into the rectum at bed time. Active cholecalciferol (Vitamin D-3) 50 MCG (2000 UT) capsule Active ferrous sulfate 325 (65 Fe) MG tablet Take 1 tablet by mouth at bed time. Active furosemide (Lasix) 20 MG tablet Take 1 tablet by mouth at bed time. Active guaiFENesin-codein e (Robitussin-AC) 100-10 MG/5ML syrup Take 10 mL by mouth every 4 (four) hours. Active aspirin 81 MG EC tablet Take 81 mg by mouth in the morning. Active cyanocobalamin (Vitamin B-12) 1000 MCG tablet Take 1,000 mcg by mouth in the morning. Active folic acid (Folvite) 1 MG tablet Take by mouth in the morning. Active lactulose (Kristalose) 10 g packet Take 10 g by mouth 2 times daily. Active pantoprazole (ProtoNix) 40 MG EC tablet Take 40 mg by mouth before breakfast. Do not crush, chew, or split. Active spironolactone (Aldactone) 25 MG tablet Take by mouth in the morning. Active insulin lispro protamine-insulin lispro (HumaLOG Mix 75-25) (75-25) 100 UNIT/ML suspension injection Inject under the skin with breakfast and with evening meal. Active AMOXICILLIN PO Take by mouth. 06/01/19 23 Active insulin glargine (Lantus SoloStar) 100 UNIT/ML pen Inject under the skin. Active Multiple Vitamin (multivitamin) tablet Take 1 tablet by mouth Once per day. Active insulin lispro protamine-insulin lispro (HumaLOG Mix 75-25) (75-25) 100 UNIT/ML suspension injection Inject 6 Units under the skin with breakfast and with evening meal. Twice a day as needed Active carboxymethylcellu lose (Refresh Plus) 0.5 % ophthalmic solution Administer 2 drops into both eyes if needed in the morning, at noon, in the evening, and at bedtime for dry eyes. Active cephalexin (Keflex) 500 MG capsule Take 500 mg by mouth 4 times daily. Last dose 08/05/2023 Active diphenhydrAMINE (BENADryl) 25 MG capsule Take 25 mg by mouth every 6 (six) hours if needed for itching. Active loratadine (Claritin Reditabs) 10 MG disintegrating tablet Take 10 mg by mouth Once per day. Active Active Problems Problem Noted Date Diagnosed Date Alcoholic cirrhosis of liver 05/26/2024 Ascites 05/26/2024 Class 1 obesity 05/26/2024 Coagulopathy 05/26/2024 Congestive heart failure 05/26/2024 Diabetes mellitus 05/26/2024 DM (diabetes mellitus), type 2 05/26/2024 Encounter for general adult medical examination with abnormal findings 05/26/2024 Fluid overload 05/26/2024 History of alcoholism 05/26/2024 HLD (hyperlipidemia) 05/26/2024 HTN (hypertension) 05/26/2024 Lives in long-term group home care facility 05/26 Overview (05/26/2024): Mar 07, 2022 Entered By: ANIYA ROWE Comment: [facility], [place] Low platelet count 05/26/2024 Nicotine dependence 05/26/2024 Other abnormalities of gait and mobility 025 Solitary pulmonary nodule 05/26/2024 Overview (05/26/2024): May 15, 2023 Entered By: ANIYA ROWE Comment: 7mm nodule LLL (Apr 2022) [facility] May 16, 2023 Entered By: ANIYA ROWE Comment: repeat in 12 months Type 2 diabetes mellitus without complications 0 05/26/2024 Valvular heart disease 05/26/2024 Overview (05/26/2024): Mar 07, 2022 Entered By: ANIYA ROWE Comment: pending echo Excessive dental attrition 10/22/2022 Encounters Date Type Department Care Team Description 05/26/2024 1:00 PM EST Office Visit [facility] [address] [place] [address] Narciso Neal DMD 03/10/2024 10:30 AM EST Office Visit [facility] [address] [place], [place] [phone] Tori Wilcox from Last 3 Months Social History Tobacco Use Types Packs/Day Years Used Date Smoking Tobacco: Former Cigarettes Q uit: 04/12/1992 Passive Smoke Exposure: Never Smokeless Tobacco: Never Tobacco Cessation:Counseling Given: Not Answered Alcohol Use Standard Drinks/Week Comments Defer 0 (1 standard drink = 0.6 oz pur e alcohol) Sex and Gender Information Value Date Recorded Sex Assigned at Male 01/21/2022 10:38 AM EDT Legal Sex Male 10:38 AM EDT Gender Identity Male 01/21/2022 10:38 AM EDT Sexual Orientation Straight 01/21/2022 10 :38 AM EDT Last Filed Vital Signs Vital Sign Reading Time Taken Comments Blood Pressure 140/78 09/12/2023 11:22 AM EDT Pulse 76 09/12/2023 11:22 AM EDT Temperature - - Respiratory Rate - - Oxygen Saturation - - Inhaled Oxygen Concentration - - Weight - - Height - - Body Mass Index - - Plan of Treatment Upcoming Encounters Date Type Department Care Team (Late st Contact Info) Description 06/09/2024 1:00 PM EDT Office Visit [facility] [address] [place] [address] Tori Wilcox [address] [place], [place] [id number] Health Maintenance Due Date Last Done Comments Dental X-Ray: Full Mouth 1945 Depression Screening 1945 Diabetes: Hemoglobin A1C 1945 Lipid Panel 1945 SDOH Screening 1945 Diabetes: Foot Exam 1954 Eye Exam 1954 Alcohol/Substance Use Screening 1956 Diabetes: Urine Protein Screening 1963 Hepatitis A Vaccines (1 of 2 - Risk 2-dose series) 1963 Zoster Vaccines (1 of 2) 1994 Hepatitis B Vaccines (1 of 3 - Risk 3-dose series) 2004 DTaP/Tdap/Td Vaccines (2 - Td or Tdap) 12/28/2018 12/28/2008 RSV Patients and Patients Aged 60 years or older (1 - 1-dose 75+ series) 2019 Dental X-Ray: Bitewings 05/31/2023 05/29/2022 COVID-19 Vaccine ( season) 2023 01/09/2023, 09/13/2022, 12/10/2021, Additional history exists Dental Prophylaxis 09/09/2024 03/10/2024, 0 12/10/2023, 08/06/2023, Additional history exists Dental Oral Exam 11/27/2024 05/26/2024, , 05/29/2022 Tobacco Screening 05/26/2025 05/26/2024 Pneumococcal Vaccine: 50+ Years Completed 04/30/2016, 06/02/2014, 12/28/2008 Influenza Vaccine Completed 12/30/2023, , 04/19/2022, Additional history exists HIB Vaccines Aged Out No longer eligi ble based on patient's age to complete this topic HPV Vaccines Aged Out No longer eligi ble based on patient's age to complete this topic IPV Vaccines Aged Out No longer eligi ble based on patient's age to complete this topic Meningococcal Vaccine Aged Out No betsy paris eligible based on patient's age to complete this topic RSV under 20 months Aged Out No longe r eligible based on patient's age to complete this topic Rotavirus Vaccines Aged Out No longer eligible based on patient's age to complete this topic Procedures Procedure Name Priority Date/Time Associated Diagnosis Comments FULL MOUTH DEBRIDEMENT TO ENABLE A COMPREHENSIVE ORAL EVALUATION AND DIAGNOSIS ON A SUBSEQUENT VISIT Routine 05/26/2024 1:00 PM EST INTRAORAL - PERIAPICAL EACH ADDITIONAL RADIOGRAPHIC IMAGE Routine 05/26/2024 1:00 PM EST INTRAORAL - PERIAPICAL EACH ADDITIONAL RADIOGRAPHIC IMAGE Routine 05/26/2024 1:00 PM EST INTRAORAL - PERIAPICAL EACH ADDITIONAL RADIOGRAPHIC IMAGE Routine 05/26/2024 1:00 PM EST INTRAORAL - PERIAPICAL FIRST RADIOGRAPHIC IMAGE Routine 05/26/2024 1:00 PM EST PERIODIC ORAL EVALUATION - ESTABLISHED PATIENT Routine 05/26/2024 1:00 PM EST ORAL HYGIENE INSTRUCTIONS Routine 2023 10:30 AM EST TOPICAL APPLICATION OF FLUORIDE VARNISH Routine 03/10/2024 10:30 AM EST PROPHYLAXIS - ADULT Routine 03/10/2024 1 0:30 AM EST BITEWINGS - 4 RADIOGRAPHIC IMAGES Routine 05/29/2022 11:00 AM EST from Last 3 Months or Most Recently Relevant to Health Maintenance
--- OUTSIDE RECORDS SUMMARY | 2024-05-27 09:26 | XMS_ITS | Encounter Summary ---
Author Organization [employer] Address [address] [facility] [address] [place] [address] Care Team Providers Care Desktop Engineer Name Role Phone Unavailable Primary Care Provider Unavailabl e Reason for Visit * Reason Comments Dental Exam X-ray and dental exa m Encounter Details Date Type Department Care Team (Late st Contact Info) Description 05/26/2024 1:00 PM EST Office Visit [facility] [address] [place] [address] Narciso Neal, GERTRUDE [address] [place] [address] Social History Tobacco Use Types Packs/Day Years Used Date Smoking Tobacco: Former Cigarettes Q uit: 04/12/1992 Passive Smoke Exposure: Never Smokeless Tobacco: Never Alcohol Use Standard Drinks/Week Comments Defer 0 (1 standard drink = 0.6 oz pur e alcohol) Sex and Gender Information Value Date Recorded Sex Assigned at Male 01/21/2022 10:38 AM EDT Legal Sex Male 10:38 AM EDT Gender Identity Male 01/21/2022 10:38 AM EDT Sexual Orientation Straight 01/21/2022 10 :38 AM EDT documented as of this encounter Progress Notes * Narciso Neal DMD - 05/26/2024 1:00 PM EST C/C: dental exam and pt has no pain at this time I.O.E: erythematous and edematous gingiva, gen plaque and calculus accumulation, severe attrition lower anterior teeth E.O.E: wnl OCS: wnl Head and neck: wnl Radiographic: gen moderate periodontal bone loss, multiple severe attrition lower anterior teeth, root carious teeth Dx: gen chronic moderate periodontitis, severe attrition lower anterior teeth , root carious teeth Tx: prophy, recall, exos Pt does not want to have any exo at this time. Inform pt that if any teeth are symptomatic, contactthe dental office [place] Teeth cleaning with toothpaste and toothbrush Lul documented in this encounter Plan of Treatment Upcoming Encounters Date Type Department Care Team (Late st Contact Info) Description 06/09/2024 1:00 PM EDT Office Visit [facility] [address], [place] [phone] Tori Wilcox [address] [facility] [place], [place] [phone] documented as of this encounter Procedures Procedure Name Priority Date/Time Associated Diagnosis Comments PERIODIC ORAL EVALUATION - ESTABLISHED PATIENT Routine 05/26/2024 1:00 PM EST INTRAORAL - PERIAPICAL FIRST RADIOGRAPHIC IMAGE Routine 05/26/2024 1:00 PM EST INTRAORAL - PERIAPICAL EACH ADDITIONAL RADIOGRAPHIC IMAGE Routine 05/26/2024 1:00 PM EST INTRAORAL - PERIAPICAL EACH ADDITIONAL RADIOGRAPHIC IMAGE Routine 05/26/2024 1:00 PM EST INTRAORAL - PERIAPICAL EACH ADDITIONAL RADIOGRAPHIC IMAGE Routine 05/26/2024 1:00 PM EST FULL MOUTH DEBRIDEMENT TO ENABLE A COMPREHENSIVE ORAL EVALUATION AND DIAGNOSIS ON A SUBSEQUENT VISIT Routine 05/26/2024 1:00 PM EST documented in this encounter Visit Diagnoses Not on filedocumented in this encounter
== END 2024-05-27 08:47 | disposition home or self-care (01) ==
LOC: HO.HSH3W 08:46
PROVIDERS: Visit Provider Nurse Practitioner
DX: E11.9 Type 2 diabetes mellitus without complications (principal)
CPT/HCPCS: 36415; 83036

== ENCOUNTER 2024-12-03 06:28 | Outpatient (REF) | payer SELFPAY ==
--- OUTSIDE RECORDS SUMMARY | 2024-12-03 06:32 | XMS_ITS | Clinical Summary ---
Author Organization [employer] Address [address] [facility] [address] [place] [address] Care Team Providers Care Gambreler Helper Name Role Phone Unavailable Primary Care Provider [...] mg by mouth Once per day. Active nystatin (Mycostatin) 365490 UNIT/GM powder Apply topically 2 times daily. Active famotidine (Pepcid) 20 MG tablet Take 20 mg by mouth Once per day. Active [...] 05/26/2024 HTN (hypertension) 05/26/2024 Lives in long-term longterm care facility 05/26 Overview (05/26/2024): Mar 07, 2022 Entered By: ANIYA ROWE Comment: [facility], [place] Low platelet count 05/26/2024 Nicotine dependence 05/26/2024 Other abnormalities of gait and mobility 025 Solitary pulmonary nodule 05/26/2024 Overview (05/26/2024): May 15, 2023 Entered By: JAE,ANIYA Comment: 7mm nodule LLL (Apr 2022) [facility] May 16, 2023 Entered By: ANIYA ROWE Comment: repeat in 12 months Type 2 diabetes mellitus without complications 0 05/26/2024 Valvular heart disease 05/26/2024 Overview (05/26/2024): Mar 07, 2022 Entered By: ANIYA ROWE Comment: pending echo Excessive dental attrition 10/22/2022 Encounters Date Type Department Care Team Description 09/15/2024 2:30 PM EDT Office Visit [facility] [address] [place] [id number] Mily De La Paz Dental calculus (Primary Dx); Dental plaque from Last 3 Months Social History Tobacco [...] Mass Index - - Plan of Treatment Health Maintenance Due Date Last Done Comments Depression Screening 1944 Diabetes: Hemoglobin A1C 1944 Lipid Panel 1944 SDOH Screening 1944 Diabetes: Foot Exam 1954 Alcohol/Substance Use Screening 1956 Diabetes: Urine Protein Screening 1963 Hepatitis A Vaccines (1 of 2 - Risk 2-dose series) 1963 Zoster Vaccines (1 of 2) 1994 Hepatitis B Vaccines (1 of 3 - Risk 3-dose series) 2004 DTaP/Tdap/Td Vaccines (2 - Td or Tdap) 12/28/2018 12/28/2008 COVID-19 Vaccine ( season) 2024 01/09/2023, 09/13/2022, 12/10/2021, Additional history exists Influenza Vaccine (#1) 2024 , 12/26/2022, 04/19/2022, Additional history exists Dental Oral Exam 11/27/2024 05/26/2024, , 05/29/2022 Dental Prophylaxis 03/18/2025 09/15/2024, 0 07/08/2024, 03/10/2024, Additional history exists Dental X-Ray: Bitewings 05/27/2025 05/26/2024, 05/29 Eye Exam 07/20/2025 07/21/2023 Tobacco Screening 09/15/2025 09/15/2024 Dental X-Ray: Full Mouth 05/28/2027 05/26/2024 Pneumococcal Vaccine: 50+ Years Completed 04/30/2016, 06/02/2014, 12/28/2008 RSV Patients and Patients Aged 60 years or older Completed 02/06/2023 HIB Vaccines Aged Out No longer eligi ble based on patient's age to complete this topic HPV Vaccines Aged Out No longer eligi ble based on patient's age to complete this topic IPV Vaccines Aged Out No longer eligi ble based on patient's age to complete this topic Meningococcal B Vaccine Aged Out No l onger eligible based on patient's age to complete [...] Procedure Name Priority Date/Time Associated Diagnosis Comments ORAL HYGIENE INSTRUCTIONS Routine 09/15/2024 2:30 PM EDT Dental calculus Dental plaque PROPHYLAXIS - ADULT Routine 09/15/2024 2 :30 PM EDT Dental calculus Dental plaque TOPICAL APPLICATION OF FLUORIDE VARNISH Routine 09/15/2024 2:30 PM EDT PERIODIC ORAL EVALUATION - ESTABLISHED PATIENT Routine 05/26/2024 1:00 PM EST BITEWINGS - 4 RADIOGRAPHIC IMAGES Routine 05/29/2022 11:00 AM EST from Last 3 Months or Most Recently Relevant to Health Maintenance
--- OUTSIDE RECORDS SUMMARY | 2024-12-03 06:32 | XMS_ITS | Encounter Summary ---
Author Organization [employer] Address [address] [facility] [address] [place] [address] Care Team Providers Care Pulmonary Care Nurse Name Role Phone Unavailable Primary Care Provider Unavailabl e Encounter Details Date Type Department Care Team (Latest Contact Info) Description 10/25/2020 Abstract [facility] CONVERSIONS Dental, Provider, DDS Social History Tobacco Use Types Packs/Day Years Used Date Smoking Tobacco: Never Assessed Sex and Gender Information Value Date Recorded Sex Assigned at Male 01/21/2022 10:38 AM EDT Legal Sex Male 10:38 AM EDT Gender Identity Male 01/21/2022 10:38 AM EDT Sexual Orientation Straight 01/21/2022 10 :38 AM EDT documented as of this encounter Plan of Treatment Not on file documented as of this encounter Visit Diagnoses Not on filedocumented in this encounter
[2024-12-03 07:30] LABS: Hemoglobin A1C 272.3806 umol/L; Total Hemoglobin (HGBA1C) 3542.3129 umol/L
== END 2024-12-03 06:29 | disposition home or self-care (01) ==
LOC: HO.HSH3W 06:28
PROVIDERS: Visit Provider Nurse Practitioner
DX: E11.9 Type 2 diabetes mellitus without complications (principal)
CPT/HCPCS: 36415; 83036

== ENCOUNTER 2025-01-17 06:43 | Outpatient (REF) | payer OTHER, SELFPAY ==
--- OUTSIDE RECORDS SUMMARY | 2025-01-17 06:47 | XMS_ITS | Clinical Summary ---
Author Organization [employer] Address [address] [facility] [address] [place] [address] Care Team Providers Care Seismic Computer Name Role Phone Unavailable Primary Care Provider [...] mouth Once per day. Active nystatin (Mycostatin) 468304 UNIT/GM powder Apply topically 2 times daily. Active famotidine (Pepcid) 20 MG tablet Take 20 mg by mouth Once per day. Active semaglutide (Ozempic) 2 MG/1.5ML solution pen-injector Inject 0.25 mg under the skin 1 (one) time per week. Active Melatonin 3-10 MG tablet Take 3 mg by mouth at bedtime. Active Active Problems Problem Noted Date Diagnosed Date Alcoholic cirrhosis of liver 05/26/2024 Ascites 05/26/2024 Class 1 obesity 05/26/2024 Coagulopathy 05/26/2024 Congestive heart failure 05/26/2024 Diabetes mellitus 05/26/2024 DM (diabetes mellitus), type 2 05/26/2024 Encounter for general adult medical examination with abnormal findings 05/26/2024 Fluid overload 05/26/2024 History of alcoholism (CMS/HCC) 05/26/2024 HLD (hyperlipidemia) 05/26/2024 HTN (hypertension) 05/26/2024 Lives in long-term [facility] facility 05/26 Overview (05/26/2024): Mar 07, 2022 Entered By: ANIYA ROWE Comment: [facility], [place] Low platelet count 05/26/2024 Nicotine dependence 05/26/2024 Other abnormalities of gait and mobility 025 Solitary pulmonary nodule 05/26/2024 Overview (05/26/2024): May 15, 2023 Entered By: ANIYA ROWE Comment: 7mm nodule LLL (Apr 2022) [facility] May 16, 2023 Entered By: ANIYA ROWE Comment: repeat in 12 months Type 2 diabetes mellitus without complications 0 05/26/2024 Valvular heart disease 05/26/2024 Overview (05/26/2024): Mar 07, 2022 Entered By: ANIYA ROWE Comment: pending echo Excessive dental attrition 10/22/2022 Encounters Date Type Department Care Team Description 12/15/2024 3:15 PM EDT Office Visit [facility] [address] [place] [phone] Mily De La Paz Dental plaque (Primary Dx); Dental calculus from Last 3 Months Social History Tobacco [...] Oral Exam 11/27/2024 05/26/2024, , 05/29/2022 Dental X-Ray: Bitewings 05/27/2025 05/26/2024, 05/29 Dental Prophylaxis 06/15/2025 12/15/2024, 0 09/15/2024, 07/08/2024, Additional history exists Eye Exam 07/20/2025 07/21/2023 Tobacco Screening 12/15/2025 12/15/2024 Dental X-Ray: Full Mouth 05/28/2027 05/26/2024 Pneumococcal [...] Associated Diagnosis Comments ORAL HYGIENE INSTRUCTIONS Routine 12/15/2024 3:15 PM EDT Dental plaque Dental calculus PROPHYLAXIS - ADULT Routine 12/15/2024 3 :15 PM EDT Dental plaque Dental calculus TOPICAL APPLICATION OF FLUORIDE VARNISH Routine 12/15/2024 3:15 PM EDT PERIODIC ORAL EVALUATION - ESTABLISHED PATIENT Routine 05/26/2024 1:00 PM EST BITEWINGS - 4 RADIOGRAPHIC IMAGES Routine 05/29/2022 11:00 AM EST from Last 3 Months or Most Recently Relevant to Health Maintenance
--- OUTSIDE RECORDS SUMMARY | 2025-01-17 06:47 | XMS_ITS | Encounter Summary ---
Author Organization [facility] Address [address] [facility] 7t [place] [address] Care Team Providers Care Fast Food Cashier Name Role Phone Unavailable Primary Care Provider Unavailabl e Encounter Details Date Type Department Care Team (Latest Contact Info) Description 10/25/[address] [facility] CONVERSIONS Dental, Provider, DDS Social History [...]
[2025-01-17 07:04] LABS: MANUAL DIFF FLAG NO
[2025-01-17 07:12] LABS: Hematocrit 42.1 % (42.0-52.0); Hemoglobin 14.3 g/dl (14.0-18.0); Imm Gran Abs Auto 0.05 X10*3/uL (0.00-0.03); Imm Gran Pct Auto 0.9 % (0.0-0.4); Lymphocytes Absolute Auto 1.3 X10*3/uL (1.2-4.9); Mean Corpuscular HGB Conc 34.0 g/dl (31.0-36.0); Mean Corpuscular Hemoglobin 33.3 pg (27.0-33.0); Mean Corpuscular Volume 98.1 fL (80.0-98.0); NRBC Abs Auto 0.000 X10*3/uL (0.0-0.012); NRBC Pct Auto 0.0 /100WBC (0.0-0.2); Platelet Count 144 X10*3/uL (160-400); Red Blood Count 4.29 X10*6/uL (4.60-5.80); White Blood Count 5.8 X10*3/uL (4.8-10.8)
[2025-01-17 07:28] LABS: Alanine Aminotransferase 16 U/L (0-40); Albumin Level 3.8 g/dL (3.5-5.0); Alkaline Phosphatase 45 U/L (39-117); Anion Gap 12 (12-20); Aspartate Amino Transferase 19 U/L (5-37); Blood Urea Nitrogen 17 mg/dL (9-16); Calcium 9.1 mg/dL (8.4-10.2); Carbon Dioxide 29 mmol/L (22-29); Chloride 100 mmol/L (96-108); Estimated Glomerular Filt Rate > 60; Potassium 4.0 mmol/L (3.3-5.1); Sodium 137 mmol/L (135-145); Total Protein 6.7 g/dL (6.5-8.0)
[2025-01-17 07:37] LABS: NT Pro B Type Natriuretic Pept 350.5 pg/mL (<300)
== END 2025-01-17 06:44 | disposition home or self-care (01) ==
LOC: HO.HSH3W 06:43
PROVIDERS: Visit Provider Nurse Practitioner
DX: I11.0 Hypertensive heart disease with heart failure (principal)
CPT/HCPCS: 36415; 80053; 83880; 85025